=== PATIENT | female | born 1960 | race Caucasian/White ===

== ENCOUNTER 2020-01-21 15:08 | Outpatient (CLI) | payer OTHER, SELFPAY ==
--- NOTE | ~2020-01-21 | DEXA_ITS ---
Bone Density Report Name: Essence Herrera Age: 59 Sex: Female Ethnicity: White Date of : 1960 Indication: postmenopausal osteoporosis; monitoring treatment; height loss; prior fracture; Referring Provider: DARVIN OROZCO Study: Bone densitometry was performed. Exam Date: January 21, 2020 Accession number: [id number] Bone Density: Region BMD T-score Z-score Classification AP Spine (L1-L4) 0.734 -2.8 -1.4 Osteoporosis Femoral Neck (Left) 0.566 -2.6 -1.3 Osteoporosis Total Hip (Left) 0.724 -1.8 -0.8 Osteopenia Total Hip Bilateral Avg 0.733 -1.8 -0.8 Osteopenia Femoral Neck (Right) 0.498 -3.2 -1.9 Osteoporosis Total Hip (Right) 0.741 -1.7 -0.7 Osteopenia World Health Organization criteria for BMD impression classify patients as: Normal (T-score at or above -1.0), Osteopenia (T-score between -1.0 and -2.5), or Osteoporosis (T-score at or below -2.5). 10-year Fracture Risk: FRAX not reported because: Some T-score for Spine Total or Hip Total or Femoral Neck at or below -2.5 Treated for osteoporosis Previous Exams: Region Exam Age BMD T-score BMD Change BMD Change Date g/cm2 vs Baseline vs Previous AP Spine(L1-L4) 01/21/2020 59 0.734 -2.8 -0.007(-1.0%)# -0.007(-1.0%)# 11/20/2007 47 0.741 -2.8 Total Hip(Left) 01/21/2020 59 0.724 -1.8 0.072(11.0%)# 0.072(11.0%)# 11/20/2007 47 0.653 -2.4 Total Hip(Right) 01/21/2020 59 0.741 -1.7 0.107(16.8%)# 0.107(16.8%)# 11/20/2007 47 0.634 -2.5 *Denotes significance at 95% confidence level, LSC for AP Spine = 0.022 g/cm2, LSC for Total Hip = 0.027 g/cm2 Clinical Information Provided by Patient: Has had a low trauma fracture Is being treated for osteoporosis Has used the following medications: HRT (i.e. estrogen/hormone therapy) Patient maximum height was 61.5 Menopause Age: 29 Onset of menses at age 13 Number of children 1 Impression: The patient has established osteoporosis, based on the Right Femoral Neck T-score and the existence of a prior fracture. The patient has risk factors, including: previous fracture. No significant bone loss was observed. Discussion: PATIENT UNDER TREATMENT WITH NO SIGNIFICANT BMD LOSS SINCE LAST EXAM. In an untreated patient, BMD typically declines with age. A lack of decline or gain is usually a sign that treatment is efficacious and fracture risk is reduced. It is important to ask patients whether they are taking their medications and to encourage continued and appro
--- NOTE | ~2020-01-21 | MM_ITS ---
EXAMINATION: MM screening wei BI w lola HISTORY: Screening mammogram TECHNIQUE: Craniocaudal and mediolateral oblique 3-D tomosynthesis images were obtained and synthetic 2-D images were generated. CAD analysis was submitted and interpreted. COMPARISON: 09/09/2018, 11/20/2007 bilateral digital screening mammogram examinations BREAST PARENCHYMAL COMPOSITION: The breasts are heterogeneously dense, which may obscure small masses . FINDINGS: Stable appearing circumscribed intramammary lymph node in the outer mid right breast. There is no evidence of suspicious mass, calcification, or architectural distortion to suggest malignancy in either breast. There has been no suspicious interval change. IMPRESSION: 1. No mammographic evidence of malignancy. 2. Recommend routine screening mammography in one year. BI-RADS Category 2: Benign finding(s). Reviewed, dictated and finalized at location A.
== END 2020-01-21 15:09 | disposition home or self-care (01) ==
LOC: ANHIMG 15:10
PROVIDERS: PCP Family Medicine; Visit Provider Emergency Medicine
DX: Z12.31 Encounter for screening mammogram for malignant neoplasm of breast (principal); Z78.0 Asymptomatic menopausal state
CPT/HCPCS: 77063; 77067; 77080

== ENCOUNTER 2021-06-28 14:18 | Outpatient (CLI) | payer OTHER, SELFPAY ==
--- NOTE | ~2021-06-28 | US_ITS ---
EXAMINATION: US thyroid DATE: 06/28/2021 14:50 INDICATION: Hypothyroidism. TECHNIQUE: Multiple ultrasound images of the thyroid were obtained. COMPARISON: None. FINDINGS: The right thyroid lobe measures 3.4 x 0.9 x 1.0 cm. The left thyroid lobe measures 3.0 x 1.0 x 1.2 c m. There is normal echotexture and echogenicity throughout the thyroid gland. No discrete nodules id entified. Normal vascular flow is present. IMPRESSION: 1. Normal thyroid. Reviewed, dictated and finalized at location A. IDE CUTTER HAND IMPRESSION: 1. Normal thyroid.
== END 2021-06-28 14:19 | disposition home or self-care (01) ==
PROVIDERS: PCP Emergency Medicine; Visit Provider Emergency Medicine
DX: E03.9 Hypothyroidism, unspecified (principal)
CPT/HCPCS: 76536

== ENCOUNTER 2021-10-21 10:47 | Outpatient (CLI) | payer OTHER, SELFPAY ==
--- NOTE | ~2021-10-21 | MM_ITS ---
EXAMINATION: MM screening wei BI w lola HISTORY: Screening TECHNIQUE: Craniocaudal and mediolateral oblique 3-D tomosynthesis images were obtained and synthetic 2-D images were generated. CAD analysis was submitted and interpreted. COMPARISON: Comparison to multiple prior studies sequentially, with oldest reviewed study dated 09/09. BREAST PARENCHYMAL COMPOSITION: There are scattered areas of fibroglandular density. FINDINGS: There is no evidence of suspicious mass, calcification, or architectural distortion to sugg est malignancy in either breast. There has been no suspicious interval change. IMPRESSION: 1. No mammographic evidence of malignancy. 2. Recommend routine screening mammography in one year. BI-RADS Category 1: Negative Reviewed, dictated and finalized at location A. OR PAYROLL MANAGER
== END 2021-10-21 10:48 | disposition home or self-care (01) ==
PROVIDERS: PCP Emergency Medicine; Visit Provider Emergency Medicine
DX: Z12.31 Encounter for screening mammogram for malignant neoplasm of breast (principal)
CPT/HCPCS: 77063; 77067

== ENCOUNTER 2021-10-23 15:39 | Outpatient (CLI) | payer OTHER, SELFPAY ==
--- NOTE | ~2021-10-23 | XR_ITS ---
EXAMINATION: XR knee LT 2V DATE: 10/23/2021 15:56 INDICATION: Left knee pain post fall TECHNIQUE: AP and lateral views of the left knee were obtained COMPARISON: None. FINDINGS: Alignment is normal. No fracture. Joint spaces are normal. No left knee joint effusion. Soft tissues are unremarkable. IMPRESSION: 1. Negative left knee radiographs. Reviewed, dictated and finalized at location A. LINE COUNSELOR
== END 2021-10-23 15:40 | disposition home or self-care (01) ==
LOC: ANHIMG 15:43
PROVIDERS: PCP Emergency Medicine; Visit Provider Emergency Medicine
DX: M25.562 Pain in left knee (principal)
CPT/HCPCS: 73560

== ENCOUNTER 2021-10-30 08:14 | Outpatient (CLI) | payer OTHER, SELFPAY ==
--- NOTE | ~2021-10-30 | MR_ITS ---
EXAMINATION: MR shoulder LT wo con DATE: 10/30/2021 09:14 INDICATION: Left biceps pain TECHNIQUE: Magnetic resonance imaging (MRI) of the left shoulder was performed without intravenous co ntrast. Sequences included axial PD-weighted FS FSE, coronal oblique PD-weighted FS FSE, coronal obli que T2-weighted FS FSE, sagittal PD-weighted FS FSE, and sagittal T1-weighted SE. COMPARISON: None. FINDINGS: Coracoacromial arch: The acromion undersurface is curved in morphology (type II). The coracoacromial ligament is normal. M inimal acromioclavicular osteoarthritis. Rotator cuff: The supraspinatus, infraspinatus and teres minor tendons are normal. The subscapularis tendon is norm al. Normal rotator cuff muscle bulk and signal. Biceps tendon, glenoid labrum and glenohumeral cartilage: Long head of the biceps tendon is normal. Glenoid labrum is normal. Partial-thickness glenoid cartila ge loss with smooth chondral surface most prominent along the posterior glenoid. Fluid: Physiologic amount fluid in the glenohumeral joint space. Disproportionate small amount of fluid in t he long head biceps tendon sheath consistent with mild bicipital tenosynovitis. No loose osteochondra l bodies. No abnormally increased fluid in the subacromial/subdeltoid bursa to suggest bursitis. Bones/other: Thoracic mild increased marrow signal at the anterior aspect of the humeral head near the medial kasi in of the lesser tuberosity. Otherwise normal marrow signal. No fracture or pathologic marrow replaci ng process. Focus of mild edema in the superficial subcutaneous fat at the posterior superior aspect of the shoulder likely inflammatory in etiology. IMPRESSION: 1. Mild left glenohumeral and minimal acromioclavicular osteoarthritis. 2. Mild bicipital tenosynovitis with normal biceps tendon with no tendinopathy or tear. Reviewed, dictated and finalized at location A.
== END 2021-10-30 08:15 | disposition home or self-care (01) ==
PROVIDERS: PCP Emergency Medicine; Visit Provider Emergency Medicine
DX: M19.012 Primary osteoarthritis, left shoulder (principal); M75.22 Bicipital tendinitis, left shoulder
CPT/HCPCS: 73221

== ENCOUNTER 2021-11-02 14:26 | Outpatient (CLI) | payer OTHER, SELFPAY ==
--- NOTE | ~2021-11-02 | MR_ITS ---
EXAMINATION: MR humerus LT wo con DATE: 11/02/2021 15:23 INDICATION: Left shoulder pain. Left biceps pain. TECHNIQUE: Magnetic resonance imaging (MRI) of the left humerus was performed without intravenous con trast. Sequences included axial, coronal, and sagittal STIR FSE and T1-weighted FSE. COMPARISON: Left shoulder MRI 10/30/2021 FINDINGS: Bone alignment is normal. No fracture. There is mild glenohumeral joint osteoarthritis. The re is a small glenohumeral joint effusion. No elbow joint effusion. The musculature is normal. The pr oximal biceps tendon is normal. There is mild distal biceps tendinopathy. IMPRESSION: 1. Mild distal biceps tendinopathy. 2. Mild glenohumeral joint osteoarthritis. 3. Small glenohumeral joint effusion. Reviewed, dictated and finalized at location A.
== END 2021-11-02 14:27 | disposition home or self-care (01) ==
LOC: ANHIMG 14:27
PROVIDERS: PCP Emergency Medicine; Visit Provider Emergency Medicine
DX: M25.512 Pain in left shoulder (principal); M75.22 Bicipital tendinitis, left shoulder; M19.012 Primary osteoarthritis, left shoulder; M25.412 Effusion, left shoulder
CPT/HCPCS: 73218

== ENCOUNTER 2021-12-27 09:14 | Outpatient (CLI) | payer OTHER, SELFPAY ==
--- NOTE | ~2021-12-27 | DEXA_ITS ---
Bone Density Report Name: TOM MATHEW Age: 61 Sex: Female Ethnicity: White Date of : 1960 Indication: postmenopausal osteoporosis; monitoring treatment; prior fracture; hysterectomy; Referring Provider: FOUZIA*DARVIN Vidales Study: Bone densitometry was performed. Exam Date: December 27, 2021 Accession number: [id number] Bone Density: Region BMD T-score Z-score Classification AP Spine(L1-L4) 0.766 -2.6 -1.0 Osteoporosis Femoral Neck (Left) 0.577 -2.5 -1.1 Osteoporosis Total Hip (Left) 0.716 -1.9 -0.8 Osteopenia Femoral Neck (Right) 0.586 -2.4 -1.0 Osteopenia Total Hip (Right) 0.753 -1.6 -0.5 Osteopenia Total Hip Mean 0.734 -1.8 -0.7 Osteopenia World Health Organization criteria for BMD impression classify patients as: Normal (T-score at or above -1.0), Osteopenia (T-score between -1.0 and -2.5), or Osteoporosis (T-score at or below -2.5). 10-year Fracture Risk: FRAX not reported because: Some T-score for Spine Total or Hip Total or Femoral Neck at or below -2.5 Treated for osteoporosis Previous Exams: Region Exam Age BMD T-score BMD Change BMD Change Date g/cm2 vs Baseline vs Previous AP Spine (L1-L4) 12/27/2021 61 0.766 -2.6 0.032 (4.4%)* 0.032 (4.4%)* 01/21/2020 59 0.734 -2.8 Total Hip(Left) 12/27/2021 61 0.716 -1.9 -0.008 (-1.2%) -0.008 (-1.2%) 01/21/2020 59 0.724 -1.8 Total Hip(Right) 12/27/2021 61 0.753 -1.6 0.012 (1.6%) 0.012 (1.6%) 01/21/2020 59 0.741 -1.7 *Denotes significance at 95% confidence level, LSC for AP Spine = 0.022 g/cm2, LSC for Total Hip = 0.027 g/cm2 Clinical Information Provided by Patient: Has had a low trauma fracture Is being treated for osteoporosis Has used the following medications: Fosamax (i.e. alendronate) Has the following medical conditions: Hysterectomy Patient maximum height was 61.5 Menopause Age: 29 Onset of menses at age 11 Number of children 1 Impression: The patient has established osteoporosis, based on the Total Spine T-score and the existence of a prior fracture. The patient has risk factors, including: previous fracture. No significant bone loss was observed. Discussion: PATIENT UNDER TREATMENT WITH NO SIGNIFICANT BMD LOSS SINCE LAST EXAM. In an untreated patient, BMD typically declines with age. A lack of decline or gain is usually a sign that treatment is efficacious and fracture risk is reduced. It is important to ask patients whether they are taking their m
== END 2021-12-27 09:15 | disposition home or self-care (01) ==
LOC: ANHIMG 09:15
PROVIDERS: PCP Emergency Medicine; Visit Provider Emergency Medicine
DX: M81.0 Age-related osteoporosis without current pathological fracture (principal); M85.851 Other specified disorders of bone density and structure, right thigh; M85.852 Other specified disorders of bone density and structure, left thigh
CPT/HCPCS: 77080

== ENCOUNTER 2022-09-16 12:41 | Emergency (ER) | payer OTHER, SELFPAY ==
--- NOTE | ~2022-09-16 | XR_ITS ---
XR knee LT min 4V 09/16/2022 13:10 INDICATION: Left knee pain PROCEDURE: 5 views left knee COMPARISON: 10/23/2021 FINDINGS: Fracture, dislocation or subluxation is not identified. No significant joint effusion. The soft tissues appear within normal limits. No foreign bodies are identified. IMPRESSION: 1: NO ACUTE BONE OR JOINT ABNORMALITY IDENTIFIED. Reviewed, dictated and finalized at location A. STIGATION LIEUTENANT
--- NOTE | 2022-09-16 12:46 | ED.LOWEXIN ---
HPI - Extremity Injury (Lower) General Chief Complaint: Extremity Injury, Lower Stated Complaint: left knee cap injury Time Seen by Provider: 09/16/22 13:12 Source: patient and RN notes reviewed Mode of arrival: ambulatory Limitations: no limitations History of Present Illness HPI Narrative: 61-year-old female presents with concern for left knee pain. Reports Saturday night she tripped over a baby gate landed on her knee. She reports pain in the knee cap, trouble bending the knee fully, the knee feels unstable. She reports she has had trouble with that knee because of arthritis, she sees an orthopedic provider for that. She reports bruising and swelling to the knee MD complaint: knee injury Related Data Home Medications Medication Instructions Recorded Confirmed duloxetine 30 mg capsule,delayed mg PO 09/16/22 release levothyroxine 25 mcg tablet mcg 09/16/22 omeprazole 09/16/22 Allergies Allergy/AdvReac Type Severity Reaction Status Date / Time codeine Allergy Unknown Abdominal Verified 07/08/18 11:00 pain wool Allergy Unknown Verified 08/20/18 15:54 Review of Systems Review of Systems: CONSTITUTIONAL: Denies malaise, chills, sweats, or fever. SKIN: Denies rash or itching, open skin, laceration, abrasion, redness, warmth MUSCULOSKELETAL: Reports left knee pain, swelling, bruising NEUROLOGIC: Denies numbness, weakness All systems reviewed & are unremarkable except as noted in HPI and below PMFSH Family History Family History (Updated 04/30/17 @ 16:41 by DOCTOR UNKNOWN) Father Diabetes mellitus Mother Hypertension Other Cerebrovascular accident Family history of arthritis Family history of seizure disorder Social History Social History Smoking status: Never smoker Alcohol intake: never Comments At time of signature, agree with nursing past medical, surgical, social and family history. There is no relevant family history pertinent to the presenting complaint Exam Narrative: GENERAL: Well-appearing, well-nourished, and in no acute distress. HEAD: Normocephalic, atraumatic. EYES: PERRLA, conjunctivae clear NECK: Supple. CHEST: Speaks in full sentences. No respiratory distress. HEART: Regular rate and rhythm. Normal and equal peripheral pulses. EXTREMITIES: Left knee has grossly normal sensation, limited range of motion. Mild anterior edema and ecchymosis. Anterior tenderness. No open wounds, no skin tenting, no devitalized tissue or atrophy, no trophic changes, no obvious deformity, alignment normal, nearby joints and structures intact. Skin warm, dry, pink. Capillary refill less than 3 seconds. SKIN: Warm, dry, no rash. NEURO: Alert and oriented x3. PSYCH: Normal mood and affect Course Course Emergency Course: Patient is aware of diagnosis, understands and agrees to treatment plan. Anticipatory guidance given. Patient agrees to follow-up as directed and is aware of reasons to seek care at the emergency department. Portions of this record may have been created with voice recognition software Level of Care: Express Care Visit Vital Signs Vital signs: Reviewed. MDM - Extremity Injury (Lower) MDM Narrative Medical decision making narrative: Patients injury and pain is consistent with musculoskeletal etiology. No signs of neurological or vascular compromise on exam. Compartments and tissues are soft without signs of compartment syndrome. Pain is felt appropriate for further evaluation on an outpatient basis. Imaging Data My impression: Images reviewed, interpreted by radiologist, agree, see report. Radiologist's impression: XR knee LT min 4V 09/16/2022 13:10 INDICATION: Left knee pain PROCEDURE: 5 views left knee COMPARISON: 10/23/2021 FINDINGS: Fracture, dislocation or subluxation is not identified. No significant joint effusion. The soft tissues appear within normal limits.? No foreign bodies are identified. IMPRESSION: 1: NO ACUTE BONE OR JOINT ABNO
[2022-09-16 12:50] VITALS: BP 116/63; PULSE 79; RESP 16; TEMP 36.6; O2SAT 100
== END 2022-09-16 13:24 | disposition home or self-care (01) ==
PROVIDERS: Emergency Provider Nurse Practitioner; PCP Emergency Medicine
DX: S80.02XA Contusion of left knee, initial encounter (principal); W18.09XA Striking against other object with subsequent fall, initial encounter; K21.9 Gastro-esophageal reflux disease without esophagitis; M79.7 Fibromyalgia
CPT/HCPCS: 73564; 99213; G0463

== ENCOUNTER 2023-07-08 08:26 | Outpatient (CLI) | payer OTHER, SELFPAY ==
--- NOTE | ~2023-07-08 | MM_ITS ---
EXAMINATION: MM screening wei BI w lola HISTORY: Screening mammogram TECHNIQUE: Craniocaudal and mediolateral oblique 3-D tomosynthesis images were obtained and synthetic 2-D images were generated. CAD analysis was submitted and interpreted. COMPARISON: No prior mammogram is available for comparison at this institution. BREAST PARENCHYMAL COMPOSITION: The breasts are heterogeneously dense, which may obscure small masses . FINDINGS: There is no evidence of suspicious mass, calcification, or architectural distortion to sugg est malignancy in either breast. There has been no suspicious interval change. IMPRESSION: 1. No mammographic evidence of malignancy. 2. Recommend routine screening mammography in one year. BI-RADS Category 1: Negative Reviewed, dictated and finalized at location A. ER TAPPER
== END 2023-07-08 08:27 | disposition home or self-care (01) ==
LOC: ANHIMG 08:28
PROVIDERS: PCP Emergency Medicine; Visit Provider Emergency Medicine
DX: Z12.31 Encounter for screening mammogram for malignant neoplasm of breast (principal)
CPT/HCPCS: 77063; 77067

== ENCOUNTER 2024-04-07 14:53 | Emergency (ER) | payer OTHER, SELFPAY ==
--- NOTE | ~2024-04-07 | CT_ITS ---
EXAMINATION: 1. CT facial & cervical spine wo DATE: 04/07/2024 15:34 INDICATION: Head/facial injury TECHNIQUE: 1. Computed tomography (CT) of the maxillofacial region and of the cervical spine were performed with out intravenous contrast. Sagittal and coronal reconstructions of both regions were obtained. Automat ed exposure control and iterative reconstruction technique were employed. The dose-length product was mGy-cm. COMPARISON: None. FINDINGS: Maxillofacial CT: No maxillofacial fractures. Specifically the nasal bones, zygomatic arches, mandible and parry of the orbits or paranasal sinuses are all intact. Nasal septum remains midline without fracture. Changes o f bilateral intraocular lens replacement. Orbits are otherwise normal. The mastoid air cells, middle ear cavities and paranasal sinuses are clear. Cervical spine CT: Alignment is normal. Moderate atlantoaxial osteoarthritis. Mild to moderate disc height loss with mod erate to severe bilateral uncovertebral osteoarthritis at C2-C3 through C5-C6. Disc bulges or disc os teophyte complexes resulting in mild central canal stenosis at each of these levels. There is also mu ltilevel moderate and severe bilateral cervical facet osteoarthritis. This along with the uncovertebr al osteoarthritis contributes to moderate neural foraminal stenosis on the left at C3-C4, on the righ t at C4-C5 and bilaterally at C5-C6. Mild neural from stenosis at several additional cervical neural foramina. Atherosclerotic calcifications at the bilateral carotid bulbs. Cervical soft tissues are ot herwise unremarkable. Mild biapical pleural-parenchymal scarring with mild mosaic attenuation in the visualized upper lungs likely related to expiratory phase of imaging. IMPRESSION: 1. No maxillofacial fractures. 2. Mild to moderate cervical spondylosis with no acute osseous abnormality. Reviewed, dictated and finalized at location A.
--- NOTE | ~2024-04-07 | CT_ITS ---
EXAMINATION: CT brain wo con DATE: 04/07/2024 15:34 INDICATION: Head injury TECHNIQUE: Computed tomography (CT) of the head was performed without intravenous contrast. Sagittal and coronal reconstructions were performed. The mA was adjusted according to patient size. Iterative reconstruction technique was employed. The dose-length product was 529.67 mGy-cm. COMPARISON: None FINDINGS: No fracture. No acute intracranial hemorrhage, acute infarction or abnormal extra axial fluid collect ion. There is mild scattered white matter hypoattenuation consistent with chronic small vessel ischem ic disease. Ventricles are normal and symmetric. No mass/mass effect. Changes of bilateral intraocula r lens replacement. The orbits, paranasal sinuses and mastoid air cells are normal. IMPRESSION: 1. No fracture or acute intracranial process. Reviewed, dictated and finalized at location A.
[2024-04-07 15:04] VITALS: BP 146/86; PULSE 110; RESP 16; TEMP 36.4; O2SAT 97
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
[2024-04-07 16:34] VITALS: BP 136/78; PULSE 80; RESP 16; TEMP 36.4; O2SAT 100
== END 2024-04-07 16:36 | disposition home or self-care (01) ==
PROVIDERS: Emergency Provider Nurse Practitioner Family; PCP Emergency Medicine
DX: S06.0X0A Concussion without loss of consciousness, initial encounter (principal); S00.83XA Contusion of other part of head, initial encounter; M47.812 Spondylosis without myelopathy or radiculopathy, cervical region; Y04.2XXA Assault by strike against or bumped into by another person, initial encounter
CPT/HCPCS: 70450; 70486; 72125; 99284

== ENCOUNTER 2024-08-13 15:33 | Outpatient (CLI) | payer OTHER, SELFPAY ==
--- NOTE | ~2024-08-13 | MM_ITS ---
EXAMINATION: MM screening wei BI w lola HISTORY: Screening TECHNIQUE: Craniocaudal and mediolateral oblique 3-D tomosynthesis images were obtained and synthetic 2-D images were generated. CAD analysis was submitted and interpreted. COMPARISON: 07/08/2023 and dating back to 01/21/2020 BREAST PARENCHYMAL COMPOSITION: There are scattered areas of fibroglandular density. FINDINGS: Bulky calcifications detected bilaterally, stable and benign in appearance. Stable parenchymal pattern without suspicious microcalcifications, architectural distortion, discrete masses or significant asymmetry. IMPRESSION: 1. No mammographic evidence of malignancy. 2. Recommend routine screening mammography in one year. BI-RADS Category 2: Benign finding(s). Reviewed, dictated and finalized at location A. SMITH HELPER
== END 2024-08-13 15:34 | disposition home or self-care (01) ==
LOC: ANHIMG 15:33
PROVIDERS: PCP Emergency Medicine; Visit Provider Emergency Medicine
DX: Z12.31 Encounter for screening mammogram for malignant neoplasm of breast (principal)
CPT/HCPCS: 77063; 77067

== ENCOUNTER 2024-08-27 00:21 | Day surgery (SDC) | payer OTHER, SELFPAY ==
[2024-08-05 15:03] VITALS: BMI 26.0
[2024-08-27 12:46] VITALS: BP 127/69; PULSE 86; RESP 17; TEMP 36.2; O2SAT 99; BMI 26.3
--- NOTE | 2024-08-27 12:56 | WPDANESEPPF ---
Anes - Initial Pre Proc Eval Procedure: Operation Date: 08/27/24 14:00 Proposed Procedures p Esophagogastroduodenoscopy - Frandy Lauren MD Date/Time: 08/27/24 12:56 Surgeon: Frandy Lauren MD Pre Op Diagnosis: GERD Patient Data Age: 63 Gender: F Height: 1.55 m Weight: 63.2 kg Last Vital Signs Temp 36.2 C L 08/27/24 12:46 Pulse 86 08/27/24 12:46 Resp 17 08/27/24 12:46 BP 127/69 08/27/24 12:46 Pulse Ox 99 08/27/24 12:46 O2 Del Method Room Air 08/27/24 12:46 Allergies Allergy/AdvReac Type Severity Reaction Status Date / Time wool Allergy Intermediate Hives Verified 08/27/24 12:45 codeine Allergy Mild Abdominal Verified 08/27/24 12:45 pain Home Medications ?Medication ?Instructions ?Recorded ?Confirmed ?Type duloxetine 30 mg capsule,delayed 30 mg PO DAILY 09/16/22 08/05/24 History release levothyroxine 25 mcg tablet 25 mcg PO DAILY 09/16/22 08/05/24 History dexlansoprazole 60 mg 60 mg PO DAILY #90 caps 06/03/24 08/05/24 Rx capsule,biphase delayed release (Dexilant) pantoprazole 40 mg tablet,delayed 40 mg PO BID #60 tabs 06/03/24 08/05/24 Rx release lansoprazole 30 mg capsule,delayed 30 mg PO DAILY #90 caps 06/09/24 08/05/24 Rx release Patient hx anesthesia problems: none Family hx anesthesia problems: none Results Review: All pre-operative results and documents have been reviewed as part of the pre-operative evaluation. [facility] Past Medical History Medical History History of endometriosis Hypothyroid Anxiety GERD (gastroesophageal reflux disease) Surgical History Surgical History H/O sinus surgery Status post complete hysterectomy Hx of right inguinal hernia repair Family History Family History Father Diabetes mellitus Mother Hypertension Other Cerebrovascular accident Family history of arthritis Family history of seizure disorder Social History Social History Smoking status: Never smoker Alcohol intake: never Substance use type: does not use Living arrangements: alone Spiritual care concerns: No Anes - Eval Final PreProcedure Day of Procedure 08/27/24 12:56 Patient weight: overweight Heart: regular rate and rhythm Lungs: clear to auscultation Airway: Mallampati scale class II Neurological: alert and oriented Last oral intake: >/= 8 hours ASA classification: II Emergent: no Anesthetic plan: proceed Anesthesia type and monitoring: general GIVS and standard monitoring Results Review: All pre-operative results and documents have been reviewed as part of the pre-operative evaluation. Informed Consent: The patient's anesthetic plan and its attendant risks and benefits were discussed with the patient/family/POA. Questions were solicited and answers provided to the satisfaction of the patient/family/POA.
[2024-08-27] MEDS: LACTATED RINGERS 1,000 ML 150 ML IV CONT (12:57)
--- NOTE | 2024-08-27 13:21 | PM.HPGS ---
History of Present Illness History of Present Illness Consent: Risks, benefits, and alternatives have been discussed and questions answered. Patient agrees to proceed with procedure. Chief complaint: GERD Narrative: Essence Herrera is a 63 year old female with gerd on ppi Review of Systems Review of Systems: All systems reviewed & are unremarkable except as noted in HPI and below PMFSH Past Medical History Medical History History of endometriosis Hypothyroid Anxiety GERD (gastroesophageal reflux disease) Surgical History Surgical History H/O sinus surgery Status post complete hysterectomy Hx of right inguinal hernia repair Family History Family History Father Diabetes mellitus Mother Hypertension Other Cerebrovascular accident Family history of arthritis Family history of seizure disorder Social History Social History Smoking status: Never smoker Alcohol intake: never Substance use type: does not use Living arrangements: alone Spiritual care concerns: No Meds Home Medications and Allergies Home Medications ?Medication ?Instructions ?Recorded ?Confirmed ?Type duloxetine 30 mg capsule,delayed 30 mg PO DAILY 09/16/22 08/05/24 History release levothyroxine 25 mcg tablet 25 mcg PO DAILY 09/16/22 08/05/24 History dexlansoprazole 60 mg 60 mg PO DAILY #90 caps 06/03/24 08/05/24 Rx capsule,biphase delayed release (Dexilant) pantoprazole 40 mg tablet,delayed 40 mg PO BID #60 tabs 06/03/24 08/05/24 Rx release lansoprazole 30 mg capsule,delayed 30 mg PO DAILY #90 caps 06/09/24 08/05/24 Rx release Allergies Allergy/AdvReac Type Severity Reaction Status Date / Time wool Allergy Intermediate Hives Verified 08/27/24 12:45 codeine Allergy Mild Abdominal Verified 08/27/24 12:45 pain Vital Signs Vital Signs - 24 hr 08/27/24 12:46 Temperature 97.1 F L Pulse Rate 86 Respiratory Rate 17 Blood Pressure 127/69 Pulse Oximetry 99 Oxygen Delivery Room Air Exam Const: General: comfortable and no acute distress HENMT: Face/Nose/Sinus: Normal nares present Eyes: General: appearance normal, both eyes and all related structures Neck: Neck: no JVD Resp: Auscultation: clear to auscultation bilaterally Cardio: Rate: regular rate Rhythm: regular rhythm GI: Inspection: non-distended GI Palp: Yes Soft to palpation Skin: General skin exam: normal color Neuro: Speech: normal speech Extrem: General: normal to inspection Psych: Mental Status: mental status grossly normal Assessment and Plan Assessment and plan (1) GERD (gastroesophageal reflux disease): Code(s): K21.9 - Gastro-esophageal reflux disease without esophagitis Status: Acute Assessment and Plan: egd with bx on ppi
[2024-08-27 13:39] VITALS: BP 129/76; PULSE 80; RESP 17; O2SAT 100
[2024-08-27 13:49] VITALS: BP 121/71; PULSE 74; RESP 19; O2SAT 100
[2024-08-27 13:59] VITALS: BP 115/71; PULSE 74; RESP 15; O2SAT 100
== END 2024-08-27 14:07 | disposition home or self-care (01) ==
PROVIDERS: PCP Emergency Medicine; Referring Provider Nurse Practitioner; Visit Provider Internal Medicine Gastroenterology
PROC: 0DJ08ZZ Inspection of Upper Intestinal Tract, Via Natural or Artificial Opening Endoscopic (ICD-10-PCS; CPT 43239; principal; 2024-08-27 14:00)
DX: K21.9 Gastro-esophageal reflux disease without esophagitis (principal); E03.9 Hypothyroidism, unspecified; F41.9 Anxiety disorder, unspecified; N80.9 Endometriosis, unspecified; Z98.890 Other specified postprocedural states; Z82.49 Family history of ischemic heart disease and other diseases of the circulatory system
CPT/HCPCS: 43239; 88305; J2003; J2704; J7120

== ENCOUNTER 2025-03-16 11:01 | Outpatient (CLI) | payer MEDICARE, OTHER, SELFPAY ==
--- OUTSIDE RECORDS SUMMARY | 2025-03-16 11:23 | XMS_ITS | Clinical Summary ---
Author Organization [facility] Address [address] [facility] [address] [place] [address] Phone Care Team Providers Care Network Admin Name Role Phone Hasmukh Blount Primary Care Provider [phone] Allergies Active Allergy Reactions Criticality Noted Date Comments Codeine Other (see Comments) 04/19/2017 Medications alendronate (FOSAMAX) 70 MG Tablet TAKE 1 TABLET BY MOUTH ONCE A WEEK IN THE MORNING AT LEAST 30 MINUTES BEFORE FIRST FOOD BEVERAGE OR MEDICATION OF DAY 0 Active levothyroxine (SYNTHROID) 25 MCG Tablet TAKE 1 TABLET BY MOUTH ONCE DAILY 0 Active DULoxetine (CYMBALTA) [address] Particles Take 60 mg by mouth. 0 Active omeprazole (PriLOSEC) 20 MG CAPSULE DELAYED RELEASE 20 mg. 3 Active Cholecalciferol 125 MCG (5000 UT) Tablet 1 po q d 3 Active Melatonin 10 MG Tablet Controlled Release Take by mouth. Activ e SF 5000 Plus 1.1 % Cream BRUSH TEETH 3 TIMES DAILY 0 Active ferrous sulfate 325 (65 Fe) MG Tablet Take 1 Tab by mouth daily. 30 Tab 3 0 Active Active Problems Problem Noted Date Diagnosed Date Anemia of unknown etiology 04/07/2020 Family History Medical History Relation Name Comments Diabetes Father Stroke Mother Relation Name Status Comments Father Mother Social History Tobacco Use Types Packs/Day Years Used Date Smoking Tobacco: Never Smokeless Tobacco: Never Alcohol Use Standard Drinks/Week Comments Yes 0 (1 standard drink = 0.6 oz pur e alcohol) 1-2 occasionally PHQ-2 Answer Date Recorded Total Score - Questions 1-9 0 10/2019 Comments Unknown Sex and Gender Information Value Date Recorded Sex Assigned at Not on file Legal Sex Female 8:13 AM CDT Gender Identity Not on file Sexual Orientation Not on file Last Filed Vital Signs Vital Sign Reading Time Taken Comments Blood Pressure 122/71 09/10/2023 11:25 AM [employer]CHER[employer] ASSISTANT Pulse 103 09/10/2023 11:25 AM [employer]CH[employer]S ASSISTANT Temperature 36.5 C (97.7 F) 09/10/2023 11:25 AM BUTCHER'S ASSISTANT Respiratory Rate 16 09/10/2023 11:25 AM BUTCHER'S ASSISTANT Oxygen Saturation 98% 09/10/2023 11:25 AM BUTCHER'S ASSISTANT Inhaled Oxygen Concentration - - Weight 60.8 kg (134 lb) 07/21/2020 11:21 AM BUTCHER'S ASSISTANT Height 156.8 cm (5' 1.75) 07/21/2020 11:[address] Body Mass Index 24.71 07/21/2020 11:21 AM BUTCHER'S ASSISTANT Plan of Treatment Health Maintenance Due Date Last Done Comments Hepatitis C Virus (HCV) Screening 1960 Mammogram 1960 TdaP Immunization 1960 Cologuard 11/15/2004 Colonoscopy 11/15/2004 Colorectal Cancer Screening 11/15/2004 Immunochemical Fecal Occult Blood 11/15/2004 Pneumococcal Immunization (50+ years) (1 of 1 - PCV) 11/15/2009 Zoster Immunization (1 of 2) 11/15/2009 DEXA Bone Density 12/28/2023 12/27/2021, , 09/11/2013, Additional history exists SARS-COV-2 Immunization ( season) 2024 12/06/2020, 11/15/2020 Influenza Immunization (#1) 04/19/202510/2018, 07/28/2011, 08/30/2007 Respiratory Syncytial Virus (RSV) Immunization (Adult) (1 - 1-dose 75+ series) 11/15/2034 Meningococcal Immunization (ACWY) Aged Out 03/13/1978 No longer eligible based on patient's age to complete this topic DTaP/Tdap/Td Immunization Discontinued 08/24/2003, 06/1979 Hepatitis B Immunization Aged Out No longer eligible based on patient's age to complete this topic Human Papillomavirus (HPV) Immunization Aged Out No longer eligible based on patient's age to complete this topic Rotavirus Immunization Aged Out No lo nger eligible based on patient's age to complete this topic Procedures Procedure Name Priority Date/Time Associated Diagnosis Comments BONE DENSITY GENERIC 12/27/2021 12:00 AM CDT from Last 3 Months or Most Recently Relevant to Health Maintenance Results * BONE DENSITY GENERIC SCAN (12/27/2021 12:00 AM CDT) 12/27/2021 us Provider Scan IMG DEXA ORDERABLES Final Result SCAN from Last 3 Months or Most Recently Relevant to Health Maintenance Insurance Care Teams Network Admin Relationship Specialty Start Date End Date Hasmukh Blount [address] [place] [address] PCP - General Family Medicine 03/03/20
--- OUTSIDE RECORDS SUMMARY | 2025-03-16 11:23 | XMS_ITS | Continuity of Care Document ---
Author Name [facility] Organization [facility] Care Team Providers Care Social Services Director Name Role Phone [facility] Unavailable Unavailable Medications Combined list of outpatient medications from Department of Defense and Veterans Affairs facilities.Medications provided include 1) outpatient medications from the last 15 months, and 2) patient-reported medications. Medication Details Route Status Patient Instructions Prescription Expires Prescription Number Last Dispense Date Ordering Provider Order Date Order Qty Source ALPRAZolam 0.5 mg tablet See Instruct ions, # 28 EA, 0 total refill(s ), Hard Stop Complet ed 05/15/2024 4 2023 28.0 Ambulat ory Pharmac y cefdinir 300 mg capsule 300 mg, Oral, every 12 hr, # 20 EA, 0 total refill(s ), Hard Stop Oral (given by mouth) Complet ed 10/16/2024 4 2024 20.0 Ambulat ory Pharmac y DULoxetine DR 30 mg capsule = 1 cap(s), Oral, Daily, # 30 EA, 3 total refill(s ), Hard Stop Oral (given by mouth) Discont inued 02/09/2025 5 2024 30.0 Ambulat ory Pharmac y DULoxetine DR 30 mg capsule 30 mg, Oral, Daily, # 30 EA, 3 total refill(s ), Hard Stop Oral (given by mouth) Complet ed 03/12/2024 3 2023 30.0 Ambulat ory Pharmac y DUL[address] 30 mg capsule 30 mg, Oral, Daily, # 30 EA, 3 total refill(s ), Hard Stop Oral (given by mouth) Discont inued 06/30/2024 4 2023 30.0 Ambulat ory Pharmac y DUL[address] 30 mg capsule See Instruct ions, # 30 EA, 3 total refill(s ), Hard Stop Discont inued 03/12/2024 4 2023 30.0 Ambulat ory Pharmac y DUL[address]etine DR 30 mg capsule = 1 cap(s), Oral, Daily, # 30 EA, 3 total refill(s ), Soft Stop Oral (given by mouth) Ordered 5 2024 30.0 Ambulat ory Pharmac y fluticasone 50 mcg/inh nasal spray [16g] 100 mcg, Nostril- Both, Daily, # 16 g, 0 total refill(s ), Hard Stop Nostri l-Both (into the nose) Complet ed 10/16/2024 4 2024 16.0 Ambulat ory Pharmac y lansoprazol e DR 30 mg capsule = 1 cap(s), Oral, Daily, # 90 EA, 3 total refill(s ), Hard Stop Oral (given by mouth) Ordered 06/09/2025 5 2024 90.0 Ambulat ory Pharmac y levothyroxi ne (Synthroid) 25 mcg tablet 25 mcg, Oral, Daily, # 90 EA, 3 total refill(s ), Hard Stop Oral (given by mouth) Complet ed 03/19/2024 4 2023 90.0 Ambulat ory Pharmac y levothyroxi ne (Synthroid) 25 mcg tablet 25 mcg, Oral, Daily, # 90 EA, 3 total refill(s ), Hard Stop Oral (given by mouth) Ordered 03/25/2025 5 2024 90.0 Ambulat ory Pharmac y pantoprazol e EC 40 mg tablet See Instruct ions, # 30 EA, 0 total refill(s ), Hard Stop Complet ed 06/07/2024 4 2023 30.0 Ambulat ory Pharmac y pantoprazol e EC 40 mg tablet See Instruct ions, # 60 EA, 0 total refill(s ), Hard Stop Complet ed 07/04/2024 4 2023 60.0 Ambulat ory Pharmac y predniSONE 20 mg tablet 60 mg, Oral, Daily, # 15 EA, 0 total refill(s ), Hard Stop Oral (given by mouth) Complet ed 10/16/2024 4 2024 15.0 Ambulat ory Pharmac y traZODone 50 mg tablet See Instruct ions, # 30 EA, 2 total refill(s ), Soft Stop Ordered 5 2024 30.0 Ambulat ory Pharmac y Allergies, Adverse Reactions, Alerts Combined list of allergies from Department of Defense and Veterans Affairs facilities. It does not include entries that were removed or entered in error. Substance Category Reaction Severity Reaction type Status Date Reported Comments Source codeine Drug allergy GI Reaction, Stomatitis Severe Active Ambulatory Pharmacy Immunizations Combined list of available immunizations from the Department of Defense and Veterans Affairs facilities. Immunization Series Date Given Administered By Site Reaction Lot Number CVX Code Drug Wheel Installer Status Comments Source influenza virus vaccine, unspecified 2010 [id number] CSL [employer]ring complet ed influenza virus vaccine, unspecifi ed 07/28/11 Given Ambulat ory Pharmac y influenza virus vaccine,split 2009 [id number] CSL [employer]ring complet ed influenza virus vaccine,s plit 07/29/10 Given Ambulat ory Pharmac y Novel influenza-H1N 1-09, injectable 2009 [id number] 127 Nov[employer]is Pharm[employer] ls complet ed Novel influenza -[id number], injectabl e 12/04/09 Given Ambulat ory Pharmac y influenza virus vaccine,split 2008 [id number] 15 CSL Behring complet ed influenza virus vaccine,s plit 07/30/09 Given Ambulat ory Pharmac y influenza virus vaccine,split 2008 [id number] GlaxoSmithKli ne complet ed influenza virus vaccine,s plit 09/11/08 Given Ambulat ory Pharmac y influenza virus vaccine, live 2007 [id number] [employer] comple t ed influenza virus vaccine, live 08/30/07 Given Ambulat ory Pharmac y hepatitis A adult vaccine 2003 [id number] Merck [employer] Company Inc complet ed hepatitis A adult vaccine 08/24/03 Given Ambulat ory Pharmac y tetanus-dipht h toxoids (Td) adult/adol 2003 [id number] sanofi pasteur complet ed tetanus-d iphth toxoids (Td) adult/ado l 08/24/03 Given Ambulat ory Pharmac y measles/mumps /rubella virus vaccine 2003 [id number] Merck [employer] Inc complet ed measles/m umps/rube lla virus vaccine 08/24/03 Given Ambulat ory Pharmac y hepatitis A adult vaccine 1998 [id number] 52 Unknown complet ed hepatitis A adult vaccine 10/09/98 Given Ambulat ory Pharmac y influenza virus vaccine,split 1982 UNK 15 sanofi pasteur complet ed influenza virus vaccine,s plit 07/03/83 Given Ambulat ory Pharmac y tetanus-dipht h toxoids (Td) adult/adol 1978 UNK 09 Unknown complet ed tetanus-d iphth toxoids (Td) adult/ado l 08/29/78 Given Ambulat ory Pharmac y poliovirus vaccine, live, oral 1978 UNK 02 Unknown complet ed polioviru s vaccine, live, oral 08/26/78 Given Ambulat ory Pharmac y typhoid vaccine, unspecified formulation 1977 UNK 91 Unknown complet ed typhoid vaccine, unspecifi ed formulati on 04/24/78 Given Ambulat ory Pharmac y vaccinia (smallpox) vaccine 1977 UNK 75 Unknown complet ed vaccinia (smallpox ) vaccine 03/28/78 Given Ambulat ory Pharmac y meningococcal polysaccharid e (MPSV4) 1977 UNK 32 Unknown complet ed meningoco ccal polysacch aride (MPSV4) 03/13/78 Given Ambulat ory Pharmac y Procedures Combined list of: 1) Procedures from Department of [facility] Affairs [facility], not all [facility] non-surgical procedures are included; 2) All procedures from the Department of Defense facilities. Procedure Procedure Type Code Date Perfomer Comments Sourc e No data available for this section Ambulatory P harmacy Social History Combined list of available smoking, tobacco, and other social history from Department of Defense and Veterans Affairs facilities. Social History Type Response Date Comment Sourc e This section is an empty social history section. [facility] Assessment and Plan Combined list of future care activities from Department of Defense and Veterans Affairs facilities (e.g., assessment and plan notes, appointments, orders, and referrals). Additional future care activities may be listed in the Plan of Care section. Result Assessment and Plan Date Source Assessment and Plan No data available for this section 03/16/2025 Ambulatory Pharmacy Functional Status Combined list of recent functional and cognitive assessments recorded at Department of Defense and Veterans Affairs (VA).VA Functional [place] Measurement (FIM) Scale: 1 = Total Assistance (Subject = 0% +), 2 = Maximal Assistance (Subject = 25% +), 3 = Moderate Assistance (Subject = 50% +), 4 = Minimal Assistance (Subject = 75% +), 5 = Supervision, 6 = Modified [place] (Device), 7 = Complete [place] (Timely, Safely). Assessment Date/Time Source Assessment Type Assessment Skill Assessment Score Assessment Details No data available for this section
--- OUTSIDE RECORDS SUMMARY | 2025-03-16 11:23 | XMS_ITS | Continuity of Care Document ---
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 Assessment Date assessment Encounter for bridget l adult medical examination without abnormal findings Mental Status Date Cognitive Assessment Orientation - [place] ed to time, place, person, situation.
--- OUTSIDE RECORDS SUMMARY | 2025-03-16 11:23 | XMS_ITS | Clinical Summary ---
Author Organization [facility] Address [address] [place] [id number] Care Team Providers Care Log Stacker Operator Name Role Phone Unavailable Primary Care Provider Unavailabl e Social History Tobacco Use Types Packs/Day Years Used Date Smoking Tobacco: Never Assessed Comments Unknown Sex and Gender Information Value Date Recorded Sex Assigned at Not on file Legal Sex Female 6:17 PM CDT Gender Identity Not on file Sexual Orientation Not on file Plan of Treatment Health Maintenance Due Date Last Done Comments Colorectal Cancer Screening Colonoscopy (10 Years) 1960 Hepatitis C 11/15/1977 DTaP, Tdap and Td Vaccines ( 1 - Tdap) 11/15/1978 Mammogram Screening 1999 Pneumococcal Vaccine: 50+ Ye ars (1 of 1 - PCV) 11/15/2009 Zoster Vaccines (1 of 2) 11/15/2009 COVID-19 Vaccine ( - 2023-2 5 season) 2024 Dexa Scan (General) 11/15/2024 RSV Immunization or 60+ Years (1 - 1-dose 75+ series) 11/15/2034 Meningococcal B Vaccine Aged Out No l onger eligible based on patient's age to complete this topic Meningococcal Vaccine Aged Out No anne marie tami eligible based on patient's age to complete this topic RSV Immunizations Under 20 Months Aged Out No longer eligible based on patient's age to complete this topic
--- OUTSIDE RECORDS SUMMARY | 2025-03-16 11:23 | XMS_ITS | Clinical Summary ---
Author Organization [facility] Address [address] [place] [address] Care Team Providers Care Edge Inker Heels Name Role Phone John Paul Fay MD Primary Care Provider [phone] Source Comments [facility],non-owned Affiliates and Associated Physician Practices is amultiple site organization consisting of ambulatory clinics and hospital sitesin [place], [place], [place] and [place]. This disclosure is being madepursuant to the Care Everywhere program and may not contain all information available regarding this patient. Last updated 18.[facility] Allergies Active Allergy Reactions Criticality Noted Date Comments Codeine 04/19/2017 Medications * Be aware that medications may not be up to date on this document. Alwaysverify current medications with the patient. DULoxetine HCl (CYMBALTA PO) Active MELATONIN ER PO Acti ve OMEPRAZOLE PO Active azithromycin (ZITHROMAX) 250 MG tabletIndication s:Abnormal sputum,Abnormal chest sounds Take 2 tablets now, then 1 tablet daily for 4 days. 6 Tab 7 Active albuterol HFA (PROAIR HFA) 108 (90 BASE) MCG/ACT inhalerIndicatio ns:Acute bronchitis, unspecified organism Inhale 2 Puffs by mouth every 4 hours as needed for Shortness of Breath, Wheezing or Cough 1 Inhaler 7 Active Social History Tobacco Use Types Packs/Day Years Used Date Smoking Tobacco: Never Smokeless Tobacco: Never Comments Unknown Sex and Gender Information Value Date Recorded Sex Assigned at Not on file Legal Sex Female 5:25 PM CDT Gender Identity Not on file Sexual Orientation Not on file Last Filed Vital Signs Vital Sign Reading Time Taken Comments Blood Pressure 104/62 04/19/2017 3:00 PM CDT Pulse 84 04/19/2017 3:00 PM CDT Temperature 37.8 C (100.1 F) 04/19/2017 3:00 PM CDT Respiratory Rate 16 04/19/2017 3:00 PM CDT Oxygen Saturation 97% 04/19/2017 3:00 PM CDT Inhaled Oxygen Concentration - - Weight 63.5 kg (140 lb) 04/19/2017 3:00 PM CDT Height 156.2 cm (5' 1.5) 04/19/2017 3:00 PM CDT Body Mass Index 26.02 04/19/2017 3:00 PM CDT Plan of Treatment Health Maintenance Due Date Last Done Comments BONE DENSITY TESTING 1960 COLOGUARD (AGES 45-75) - COL ON CA SCREENING 1959 COLON MONITORING 1959 COLONOSCOPY - COLON CA SCREENING 1959 CT COLONOGRAPHY - COLON CA SCREENING 1959 Colorectal Cancer Screening 1959 FIT - COLON CA SCREENING 1959 FLEX SIG - COLON CA SCREENING 1959 LIPID TESTING 1959 MAMMOGRAM 1959 HIV SCREENING 11/15/1974 HEPATITIS C SCREENING 11/11/1977 DTAP/TDAP/TD VACCINES (1 - Tdap) 11/15/1978 PAP SMEAR 11/15/1980 PNEUMOCOCCAL VACCINE 50+ (1 of 1 - PCV) 11/15/2009 ZOSTER VACCINE (1 of 2) 11/15/2009 SCREENING FOR DIABETES 04/19/2017 COVID-19 VACCINE ( - 2023-2 5 season) 2024 DEPRESSION SCREENING 08/19/2024 INFLUENZA VACCINE (#1) 2025 Respiratory Syncytial Virus (RSV) Vaccine Pt: or over 60 yrs (1 - 1-dose 75+ series) 11/15/2034 HEPATITIS B VACCINE Aged Out No longe r eligible based on patient's age to complete this topic HIB VACCINE Aged Out No longer eligi ble based on patient's age to complete this topic HPV VACCINE Aged Out No longer eligi ble based on patient's age to complete this topic MENINGOCOCCAL (Group B) VACC INE SHARED DECISION-MAKING Aged Out No longer eligibl e based on patient's age to complete this topic MENINGOCOCCAL GROUPS A/C/Y/W VACCINE Aged Out No longer eligible b ased on patient's age to complete this topic Insurance [employer] [facility] SELF PAY NO INSURANCE Member Subscriber Plan / Payer (Ef fective for All Dates) Name:Tom Herrera Member ID:Not on file Relation to Subscriber:Not on file Name:TOM HERRERA Subscriber ID:Not on file (Home) Address: [address] [place] [id number] Payer ID:Not on file Group ID:Not on file Type:Self Pay Address: [facility] Care Teams Edge Inker Heels Relationship Specialty Start Date End Date John Paul Fay MD [address] [place] [address] PCP - General Family Medicine 04/19/17
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
[2025-03-16 12:03] LABS: Alanine Aminotransferase 16 U/L (6-35); Albumin Level 4.1 g/dL (3.5-5.1); Alkaline Phosphatase 47 U/L (38-126); Anion Gap 7 mmol/L (4-12); Aspartate Amino Transferase 31 U/L (14-36); Bilirubin,Total 0.1 mg/dL (0.2-1.3); Blood Urea Nitrogen 14 mg/dL (7-17); Calcium 9.5 mg/dL (8.4-10.2); Carbon Dioxide 27 mmol/L (22-30); Chloride 106 mmol/L (98-107); Estimated Glomerular Filt Rate > 60; Glucose 93 mg/dL (65-110); Potassium 3.8 mmol/L (3.4-5.0); Sodium 140 mmol/L (137-145); Total Protein 7.2 g/dL (6.3-8.2)
[2025-03-17 07:09] LABS: TSH 0.999 uIU/mL (0.450-4.500)
== END 2025-03-16 11:02 | disposition home or self-care (01) ==
PROVIDERS: PCP Emergency Medicine; Visit Provider Internal Medicine Endocrinology, Diabetes & Metabolism
DX: E03.9 Hypothyroidism, unspecified (principal); E55.9 Vitamin D deficiency, unspecified; M81.0 Age-related osteoporosis without current pathological fracture
CPT/HCPCS: 36415; 80053; 82306; 84439; 84443; 84481; 86376

== ENCOUNTER 2025-03-23 09:49 | Outpatient (CLI) | payer MEDICARE, OTHER, SELFPAY ==
--- NOTE | ~2025-03-23 | DEXA_ITS ---
Bone Density Report Name: TOM MATHEW Age: 64 Sex: Female Ethnicity: White Date of : 1960 Indication: postmenopausal; screening for osteoporosis; hysterectomy; Referring Provider: MAINE, LIS Luciano Study: Bone densitometry was performed. Exam Date: March 23, 2025 Accession number: [id number] Bone Density: Region BMD T-score Z-score Classification AP Spine(L1-L4) 0.757 -2.6 -0.9 Osteoporosis Femoral Neck (Left) 0.606 -2.2 -0.7 Osteopenia Total Hip (Left) 0.705 -1.9 -0.7 Osteopenia Femoral Neck (Right) 0.554 -2.7 -1.1 Osteoporosis Total Hip (Right) 0.770 -1.4 -0.2 Osteopenia Total Hip Mean 0.737 -1.7 -0.5 Osteopenia World Health Organization criteria for BMD impression classify patients as: Normal (T-score at or above -1.0), Osteopenia (T-score between -1.0 and -2.5), or Osteoporosis (T-score at or below -2.5). 10-year Fracture Risk: FRAX not reported because: Some T-score for Spine Total or Hip Total or Femoral Neck at or below -2.5 Treated for osteoporosis Clinical Information Provided by Patient: Is being treated for osteoporosis Has used the following medications: Fosamax (i.e. alendronate), HRT (i.e. estrogen/hormone therapy), Prolia (i.e. denosumab), Vitamin D, Calcium Has the following medical conditions: Hysterectomy Patient maximum height was 61.5 Menopause Age: 29 No regular weight bearing exercise Onset of menses at age 13 Number of children 1 Impression: The patient has osteoporosis, based on the Right Femoral Neck T-score. Discussion: It is important to ask patients whether they are taking their medications and to encourage continued and appropriate compliance with their osteoporosis therapies to reduce fracture risk. It is also important to review their risk factors and encourage appropriate calcium and vitamin D intakes, exercise, fall prevention and other lifestyle measures. Follow-Up: Consider a repeat BMD and Vertebral Fracture Assessment (VFA) exam in 2 years or sooner if medically necessary, to reassess this patient's status. Reported by: RICH on 03/23/2025 10:36:00 AM. Reviewed, dictated and finalized at location A.
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
--- OUTSIDE RECORDS SUMMARY | 2025-03-23 10:14 | XMS_ITS | Continuity of Care Document ---
Author Name [facility] Organization [facility] Care Team Providers Care Washhouse Worker Name Role Phone [facility] Unavailable Unavailable Medications Combined list of outpatient medications from Department of Defense and Veterans Affairs facilities.Medications provided include 1) outpatient medications from the last 15 months, and 2) patient-reported medications. Medication Details Route Status Patient Instructions Prescription Expires Prescription Number Last Dispense Date Ordering Provider Order Date Order Qty Source ALPRAZolam 0.5 mg tablet See Instruct neli, # 28 EA, 0 total refill(s ), [...] y levothyroxi ne (Synthroid) 25 mcg tablet = 1 tab(s), Oral, Daily, # 90 EA, 3 total refill(s ), Soft Stop Oral (given by mouth) Ordered 5 2024 90.0 Ambulat ory Pharmac y [...] Stop Oral (given by mouth) Discont inued 03/16/2025 5 2024 90.0 Ambulat ory Pharmac y oxycodone-a cetaminophe n 5 mg-325 mg tablet See Instruct ions, Oral, # 15 EA, 0 total refill(s ), Soft Stop Oral (given by mouth) Ordered 5 2024 15.0 Ambulat ory Pharmac y pantoprazol e EC [...] 4 2024 15.0 Ambulat ory Pharmac y rivaroxaban 10 mg tablet See Instruct ions, Oral, 0, # 14 EA, 0 total refill(s ), Soft Stop Oral (given by mouth) Ordered 5 2024 14.0 Ambulat ory Pharmac y traZODone 50 mg tablet See Instruct ions, # 30 EA, 2 total refill(s ), Soft Stop Ordered 5 2024 30.0 Ambulat ory Pharmac y traZODone 50 mg tablet See Instruct ions, # 30 EA, 2 total refill(s ), Soft Stop Discont inued 03/19/2025 5 2024 30.0 Ambulat ory Pharmac y [...] Site Reaction Lot Number CVX Code Drug Area Secretary Status Comments Source influenza virus vaccine, unspecified 2010 [id number] 88 CSL Behring complet ed influenza virus vaccine, unspecifi ed 07/28/11 Given Ambulat ory Pharmac y influenza virus vaccine,split 2009 [id number] CSL Behring complet ed influenza virus vaccine,s plit 07/29/10 Given Ambulat ory Pharmac y Novel influenza-H1N 1-09, injectable 2009 [id number] 127 Novartis Pharmaceutica ls complet ed Novel influenza -[id number], injectabl e 12/04/09 Given Ambulat ory Pharmac y influenza virus vaccine,split 2008 [id number] 1A 15 CSL Behring complet ed influenza virus vaccine,s plit 07/30/09 Given Ambulat ory Pharmac y influenza virus vaccine,split 2008 [id number] 15 Glax[employer]ribogenicsKli ne complet ed influenza virus vaccine,s plit 09/11/08 Given Ambulat ory Pharmac y influenza virus vaccine, live 2007 [id number] 111 [employer] comple t ed influenza virus vaccine, live 08/30/07 Given Ambulat ory Pharmac y hepatitis A adult vaccine 2003 [id number] Merck & Company Inc complet ed hepatitis A adult vaccine 08/24/03 Given Ambulat ory Pharmac y tetanus-dipht h toxoids (Td) adult/adol 2003 [id number] sanofi pasteur complet ed tetanus-d iphth [...] [facility] facilities [facility], not all [place] non-surgical procedures are included; 2) All procedures [...] section is an empty social history section. [facility] Assessment and Plan Combined list of future care activities from Department of Defense and Veterans Affairs facilities (e.g., assessment and plan notes, appointments, orders, and referrals). Additional future care activities may be listed in the Plan of Care section. Result Assessment and Plan Date Source Assessment and Plan No data available for this section 03/23/2025 Ambulatory Pharmacy Functional Status Combined list of recent functional and cognitive assessments recorded at Department of Defense and [facility] Affairs ([place] Functional Jay Measurement (FIM) Scale: 1 = Total Assistance (Subject = 0% +), 2 = Maximal Assistance (Subject = 25% +), 3 = Moderate Assistance (Subject = 50% +), 4 = Minimal Assistance (Subject = 75% +), 5 = Supervision, 6 = Modified Jay (Device), 7 = Complete Jay (Timely, Safely). Assessment Date/Time Source Assessment Type Assessment Skill Assessment Score Assessment Details No data available for this section
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
--- OUTSIDE RECORDS SUMMARY | 2025-03-23 10:15 | XMS_ITS | Clinical Summary ---
Author Organization [facility] Address [address] [place] [address] Care Team Providers Care Resource Room Special Education Teacher Name Role Phone John Paul Fay MD Primary Care Provider [phone] Source Comments [facility],non-owned Affiliates and Associated Physician Practices is amultiple site organization consisting of ambulatory clinics and hospital sitesin [place], [place], [place] and [place]. This disclosure is being madepursuant to the Care Everywhere program and may not contain all information available regarding this patient. Last updated 18.[facility] Allergies Active Allergy Reactions Criticality Noted Date [...] Insurance [employer] [facility] SELF PAY NO INSURANCE Member Subscriber Plan / Payer (Ef fective for All Dates) Name:Tom Herrera Member ID:Not on file Relation to Subscriber:Not on file Name:TOM HERRERA Subscriber ID:Not on file (Home) Address: [address] [place] [id number] Payer ID:Not on file Group ID:Not on file Type:Self Pay Address: [facility] Care Teams Resource Room Special Education Teacher Relationship Specialty Start Date End Date John Paul Fay MD [address] [place] [address] PCP - General Family Medicine 04/19/17
--- OUTSIDE RECORDS SUMMARY | 2025-03-23 10:15 | XMS_ITS | Clinical Summary ---
Author Organization [facility] Address [address], [facility] [address] [address] Phone Care Team Providers Care Resin Coater Name Role Phone Hasmukh Blount Primary Care Provider [phone] Allergies Active Allergy Reactions Criticality Noted Date [...] Comments Blood Pressure 122/71 09/10/2023 11:25 AM BEEF KILLER Pulse 103 09/10/2023 11:25 AM BEEF KILLER Temperature 36.5 C (97.7 F) 09/10/2023 11:25 AM BEEF KILLER Respiratory Rate 16 09/10/2023 11:25 AM BEEF KILLER Oxygen Saturation 98% 09/10/2023 11:25 AM BEEF KILLER Inhaled Oxygen Concentration - - Weight 60.8 kg (134 lb) 07/21/2020 11:21 AM BEEF KILLER Height 156.8 cm (5' 1.75) 07/21/2020 11:[address] Body Mass Index 24.71 07/21/2020 11:21 AM BEEF KILLER Plan of Treatment Health Maintenance Due Date [...] Relevant to Health Maintenance Insurance Care Teams Resin Coater Relationship Specialty Start Date End Date Hasmukh Blount [address] [place] [address] PCP - General Family Medicine 03/03/20
--- OUTSIDE RECORDS SUMMARY | 2025-03-23 10:15 | XMS_ITS | Clinical Summary ---
Author Organization [facility] Address [address] [place] [address] Care Team Providers Care Aquaculture Program Director Name Role Phone Unavailable Primary Care Provider [...]
== END 2025-03-23 09:50 | disposition home or self-care (01) ==
LOC: ANHIMG 09:51
PROVIDERS: PCP Emergency Medicine; Visit Provider Internal Medicine Endocrinology, Diabetes & Metabolism
DX: M81.0 Age-related osteoporosis without current pathological fracture (principal); M85.89 Other specified disorders of bone density and structure, multiple sites; Z78.0 Asymptomatic menopausal state
CPT/HCPCS: 77080

== ENCOUNTER 2025-04-02 06:46 | Day surgery (SDC) | payer MEDICARE, OTHER, SELFPAY ==
--- NOTE | 2025-03-29 12:05 | PC.NURSE ---
Report to the Outpatient Waiting Room, entrance under the green pavilion located off [facility], at time _6:30 AM on date _04/02/25 . Planned Procedure Time: _8:30 AM .? Time changes happen often and if your time is changed the preop area will call you the afternoon before. - You and your visitor will be asked to self-screen and do not enter if you have any COVID symptoms. Please call surgeon if you need to reschedule. - A mask is optional within the hospital at this time. Patients may have clear liquids (water, carbonated beverages, clear teas, apple juice) until 3 hours prior to surgery ( 5:30 AM) with a maximum of 20 ounces. - No food from midnight until time of surgery and no smoking, or chewing tobacco (or any form of nicotine). No chewing gum, candy or mints. - Take only the following medications with a SIP of water on the morning of surgery: ___DULOXETINE,LEVOTHYROXINE DO NOT STOP ANY OF YOUR OTHER PRESCRIPTION MEDICATIONS PRIOR TO SURGERY EXCEPT THE FOLLOWING Hold all vitamins and supplements for 3 days per anesthesiologist.LAST DOSE 03/29/25 Medications to discontinue per physician NONE Please no make-up, nail latvian, hairspray, perfume, deodorant, or body powder the day of surgery.? No jewelry (including any body piercings) or valuables the day of surgery, leave them at home.? Please take a shower or bath the night before, or the morning of, surgery with an antibacterial soap.? Wear comfortable, loose fitting clothing.? Children are encouraged to wear pajamas. - Jewelry must be removed prior to entering the operating room.? Rings and piercings that are not removed may be cut off. - The hospital will not accept responsibility for valuables.? - Please leave all valuables, including medications, at home the day of surgery. If you are going home after surgery, a licensed horse and wagon driver must drive you home.? - NO public transportation without another adult if you receive anesthesia. - We recommend that an adult stay with you for 24 hours following discharge. - We also recommend that you do not drive, make important decision, drink alcoholic beverages, or take any drugs that were not prescribed by your health care provider for at least 24 hours after your discharge time. For Pediatric surgeries, we recommend two adults accompany the child home. Follow any additional instructions given to you from your surgeon. Telephone instructions given to __PATIENT and asked if any additional questions and then verbalized understanding. Patient advised to call surgeon office or pre surgery nurse liaison [phone] if any additional questions.
[2025-03-29 12:24] VITALS: BMI 24.9
[2025-04-02] VITALS (9 sets, daily range): BP systolic 102–147; BP diastolic 58–82; PULSE 60–84; RESP 12–18; TEMP 36.3–36.9; O2SAT 94–100; BMI 25.6
--- NOTE | ~2025-04-02 | XR_ITS ---
EXAMINATION: XR surgery orthopedic DATE: 04/02/2025 10:04 INDICATION: Brostrom procedure for lateral right ankle ligament stabilization TECHNIQUE: Single lateral image radiograph of the left mid and hindfoot was obtained. COMPARISON: None. FINDINGS: Surgical retractors project over the head and neck of the talus. A metallic probe and tip of a hemost at projects more posteriorly over the region of the posterior facet of the subtalar joint. The visual ized bones are unremarkable. IMPRESSION: 1. Lateral radiograph of the mid and hindfoot obtained during procedure at the right hindfoot. No oss eous adenopathy. See procedure note for further detail. Reviewed, dictated and finalized at location A. IMPRESSION: 1. Lateral radiograph of the mid and hindfoot obtained during procedure at the right hindfoot. No osseous adenopathy. See procedure note for further detail.
--- OUTSIDE RECORDS SUMMARY | 2025-04-02 06:48 | XMS_ITS | Clinical Summary ---
Author Organization [facility] Address [address] [place] [address] Care Team Providers Care Ship Steward Name Role Phone Unavailable Primary Care Provider [...]
--- OUTSIDE RECORDS SUMMARY | 2025-04-02 06:48 | XMS_ITS | Clinical Summary ---
Author Organization [facility] Address [address] [place] [id number] Care Team Providers Care Food Safety Auditor Name Role Phone Hasmukh Blount MD Primary [...] 07/30/2022 Assessment & Plan (08/24/2024 10:37 AM COAT IRONER HAND): Chronic, unknown status Continue current dose of levothyroxine Recheck labs Assessment & Plan (07/29/2023 1:22 PM COAT IRONER HAND): Pt currently on Levothyroxine 25 mcg oral daily Chronic stable Assessment & Plan (12/03/2022 3:07 PM CDT): Pt currently on Levothyroxine 25 mcg oral daily Chronic stable Assessment & Plan (07/30/2022 12:22 PM COAT IRONER HAND): Pt currently on Levothyroxine 25 mcg oral daily Recheck TFT today and further plans based on it Vitamin D deficiency 07/30/2022 Assessment & Plan (08/24/2024 10:38 AM COAT IRONER HAND): Check levels Assessment & Plan (07/29/2023 1:22 PM COAT IRONER HAND): Pt currently on maintenance dose Assessment & Plan (12/03/2022 3:07 PM CDT): Pt currently on maintenance dose Assessment & Plan (07/30/2022 12:21 PM COAT IRONER HAND): Pt currently on maintenance dose Will check levels and further plans based on it Primary osteoarthritis of left knee 03/27/2022 Chronic pain of left knee 03/27/2022 Anemia of unknown etiology 04/07/2020 Fibromyalgia 03/02/2018 Assessment & Plan (03/02/2018 3:16 PM CDT): Finally starting to feel better after working long hours for the [employer]. Looking forward to retiring soon and spending more time with her grandchildren. She is going to start to working out with her personal lines insurance advisor twice weekly tomorrow. Continue present regimen. Heel pain 03/06/2016 Overview (11/22/2016): Pain of left heel Intolerant of cold 06/03/2015 Overview (11/22/2016): Cold intolerance Osteoporosis 01/02/2014 Overview (11/23/2016): Osteoporosis Assessment & Plan (08/24/2024 10:38 AM COAT IRONER HAND): Chronic, unknown status Long standing h/o Osteoporosis [...] soon Assessment & Plan (07/29/2023 1:22 PM COAT IRONER HAND): Long standing h/o Osteoporosis Pt on oral alendronate atleast since 6-7 yrs , off since 08/2022 worsening osteoporosis S/p reclast infusion 08/29/2022 Plan: Continue current calcium and Vitamin D supplements Fall precautions Advise to include resistance/strenght balance training exercises - Due for labs after Aug 19 - due for reclast after 08/30/2023 at [facility] - due to for DEXA scan Jun-Jul [...] 2023 Assessment & Plan (07/30/2022 12:25 PM COAT IRONER HAND): Long standing h/o Osteoporosis Pt on oral [...] on file Legal Sex Female 11:04 AM COAT IRONER HAND Gender Identity Female 05/13/2020 3:10 PM CDT Sexual Orientation Straight 05/13/2020 3: 10 PM CDT Obstetrics History Last Filed Vital Signs Vital Sign Reading Time Taken Comments Blood Pressure 104/54 12/22/2024 9:53 AM CDT Pulse 87 12/22/2024 9:53 AM CDT Temperature 36.8 C (98.2 F) 12/22/2024 9:53 AM CDT Respiratory Rate 15 07/29/2023 11:07 AM COAT IRONER HAND Oxygen Saturation 97% 12/22/2024 9:53 AM CDT [...] OR MORE SITES Routine 09/11/2013 1:54 PM COAT IRONER HAND from Last 3 Months or Most Recently Relevant to Health Maintenance Results * Dexa Axial Skeleton Bone Density 1 or 2 Site (09/11/2013 1:54 PM COAT IRONER HAND) Anatomical Region Laterality Modality Body N/A Radiographic Tamara ging 09/11/2013 1:54 PM COAT IRONER HAND Narrative 09/11/2013 3:11 PM COAT IRONER HAND Bone mineral density [facility] Clinical History: 52-year-old postmenopausal female with requisition history of osteoporosis taking calcium and vitamin D. DXA BMD was done at [facility] on a Hologic Discovery CI. Precision testing at this site [...] MD Alisha - 12/22/2016 Bone mineral density [facility] Clinical History: 52-year-old postmenopausal female with requisition history of osteoporosis taking calcium and vitamin D. DXA BMD was done at [facility] on a [employer] Discovery CI. Precision testing at this site [...] 3 FAX: NextGen Order #: Historical Provider IMDora DXA PROCEDURES Final Result from Last 3 Months or Most Recently Relevant to Health Maintenance Insurance [facility] MEDICARE ADVANTAGE [facility] Address: [facility] [address] [place] [address] Vivino Care Teams Food Safety Auditor Relationship Specialty Start Date End Date Hasmukh Blount MD PCP - General Family Medicine 01/18/21
--- OUTSIDE RECORDS SUMMARY | 2025-04-02 06:48 | XMS_ITS | Clinical Summary ---
Author Organization [facility] Address [address], [facility] [address] [place] [address] Phone Care Team Providers Care Dental Instructor Name Role Phone Hasmukh Blount Primary Care Provider [phone] Allergies Active Allergy Reactions Criticality Noted Date [...] Comments Blood Pressure 122/71 09/10/2023 11:25 AM TRIMMER MACHINE OPERATOR Pulse 103 09/10/2023 11:25 AM TRIMMER MACHINE OPERATOR Temperature 36.5 C (97.7 F) 09/10/2023 11:25 AM TRIMMER MACHINE OPERATOR Respiratory Rate 16 09/10/2023 11:25 AM TRIMMER MACHINE OPERATOR Oxygen Saturation 98% 09/10/2023 11:25 AM TRIMMER MACHINE OPERATOR Inhaled Oxygen Concentration - - Weight 60.8 kg (134 lb) 07/21/2020 11:21 AM TRIMMER MACHINE OPERATOR Height 156.8 cm (5' 1.75) 07/21/2020 11:[address] Body Mass Index 24.71 07/21/2020 11:21 AM TRIMMER MACHINE OPERATOR Plan of Treatment Health Maintenance Due Date [...] Relevant to Health Maintenance Insurance Care Teams Dental Instructor Relationship Specialty Start Date End Date Hasmukh Blount [address] [place] [address] PCP - General Family Medicine 03/03/20
--- OUTSIDE RECORDS SUMMARY | 2025-04-02 06:48 | XMS_ITS | Continuity of Care Document ---
Author Name [facility] Organization [facility] Care Team Providers Care Bicycle Assembler Name Role Phone [facility] Unavailable Unavailable Medications Combined list of outpatient [...] Site Reaction Lot Number CVX Code Drug Shield Runner Status Comments Source influenza virus vaccine, unspecified 2010 [id number] 88 CSL Behring complet ed influenza virus vaccine, unspecifi ed 07/28/11 Given Ambulat ory Pharmac y influenza virus vaccine,split 2009 [id number] CSL Behring complet ed influenza virus vaccine,s plit 07/29/10 Given Ambulat ory Pharmac y Novel influenza-H1N 1-09, injectable 2009 [id number] 127 Novartis Pharmaceutica ls complet ed Novel influenza -D1B1-70, injectabl e 12/04/09 Given Ambulat ory Pharmac y influenza virus vaccine,split 2008 [id number] 1A 15 CSL Behring complet ed influenza virus vaccine,s plit 07/30/09 Given Ambulat ory Pharmac y influenza virus vaccine,split 2008 [id number] 15 GlaxProspectStreamKli ne complet ed influenza virus vaccine,s plit 09/11/08 Given Ambulat ory Pharmac y influenza virus vaccine, live 2007 [id number] Sift Inc comple t ed influenza virus vaccine, live 08/30/07 Given Ambulat ory Pharmac y hepatitis A adult vaccine 2003 [id number] Merck & Company Inc complet ed hepatitis A adult vaccine 08/24/03 Given Ambulat ory Pharmac y tetanus-dipht h toxoids (Td) adult/adol 2003 [id number] sanofi pasteur complet ed tetanus-d iphth [...] [facility], not all [place] non-surgical procedures are included; 2) All procedures [...] section is an empty social history section. [facility] Assessment and Plan Combined list of future care activities from Department of Defense and Veterans Affairs facilities (e.g., assessment and plan notes, appointments, orders, and referrals). Additional future care activities may be listed in the Plan of Care section. Result Assessment and Plan Date Source Assessment and Plan No data available for this section 04/02/2025 Ambulatory Pharmacy Functional Status Combined list of recent functional and cognitive assessments recorded at Department of Defense and Veterans Affairs ([place]).VA Functional Gunlock Measurement (FIM) Scale: 1 = Total Assistance (Subject = 0% +), 2 = Maximal Assistance (Subject = 25% +), 3 = Moderate Assistance (Subject = 50% +), 4 = Minimal Assistance (Subject = 75% +), 5 = Supervision, 6 = Modified Gunlock (Device), 7 = Complete Gunlock (Timely, Safely). Assessment Date/Time Source Assessment Type Assessment Skill Assessment Score Assessment Details No data available for this section
--- OUTSIDE RECORDS SUMMARY | 2025-04-02 06:48 | XMS_ITS | Continuity of Care Document ---
Author Organization [facility] Address [address] [facility] [place] [address] Phone Care Team Providers Care Transportation Assistant Name Role Phone Hasmukh Blount MD Unavailable [...] Encounter PREV VISIT, EST, 65 & OVER [facility], [address], [place], [place], [address], [place] tel:[phone] [facility] physical (chief complaint) Encounter for general adult medical examination without abnormal findings 5 Jose Alejandro Santo [address], [place], [place], [address] , [place]. tel:[phone] OFFICE/OUTPA TIENT VISIT, [facility] [place], [address], [place], [place], [address], [place] tel:[phone] [facility] heel pain1 (chief complaint) Pain in right foot 5 Jose Alejandro Santo [address], [place], [place], [address] , [place]. tel:[phone] OFFICE/OUTPA TIENT VISIT, [facility] [place], [address], [place], [place], [address], [place] tel:[phone] [facility] sick (chief complaint)GERD1 (chief complaint) GERD w/o esophagitisVir al infection 5 Jose Alejandro Santo [address], [place], [place], [address] , [place]. tel:[phone] OFFICE/OUTPA TIENT VISIT, [facility] [place], [address], [place], [place], [address], [place] tel:[phone] [facility] GERD1 (chief complaint)anxet y1 (chief complaint) Generalized Anxiety DisorderGERD w/o esophagitis 4 Jose Alejandro Noe. [address], [place], [place], [address] , [place]. tel:[phone] OFFICE/OUTPA TIENT VISIT, EST [facility], [address], [place], [place], [address], [place] tel:[phone] [facility] GERD1 (chief complaint)concu ssion1 (chief complaint) GERD w/o esophagitisHea dacheGeneraliz ed Anxiety DisorderOsteop orosis 4 Jose Alejandro Noe. [address], [place], [place], [address] , [place]. tel:[phone] PREV VISIT, EST, AGE 40-64 [facility], [address], [place], [place], [address], [place] tel:[phone] [facility] physical (chief complaint) Encounter for general adult medical exam w abnormal findingsOsteop orosisHypothyr oidismPain in right ankleFibromyal otis 4 Jose Alejandro Noe. [address], [place], [place], [address] , [place]. tel:[phone] OFFICE/OUTPA TIENT VISIT, EST [facility], [address], [place], [place], [address], [place] tel:[phone] [facility] ankle pain1 (chief complaint) Pain in right anklePain in right wristFibromyal otis 4 Jose Alejandro Hasmukh. [address], [place], [place], [address] , [place]. tel:[phone] OFFICE/OUTPA TIENT VISIT, EST [facility], [address], [place], [place], [address], [place] tel:[phone] [facility] sinus1 (chief complaint)anxie ty1 (chief complaint) Acute sinusitisFibro myalgia Feb-2 4 Jose Alejandro Hasmukh. [address], [place], [place], [address] , [place]. tel:[phone] OFFICE/OUTPA TIENT VISIT, EST [facility], [address], [place], [place], [address], [place] [phone] [facility] cataract1 (chief complaint)hypot hyroidism1 (chief complaint) Cataract with neovasculariza tion, bilateralHypot hyroidism 3 Blount Hasmukh. [address], [place], [place], [address] , [place]. tel:[phone] PREV VISIT, EST, AGE 40-64 [facility], [address], [place], [place], [address], [place] tel:[phone] [facility] physical (chief complaint) Encounter for general adult medical exam w abnormal findingsOsteop orosisHypothyr oidismFibromya lgiaAcute bronchitis 3 Blount Hasmukh. [address], [place], [place], [address] , [place]. tel:[phone] OFFICE/OUTPA TIENT VISIT, [facility] [place], [address], [place], [place], [address], [place] tel:[phone] [facility] hypothyroidism1 (chief complaint)fibro myalgia1 (chief complaint) Hypothyroidism FibromyalgiaOs teoporosis 2 Blount Hasmukh. [address], [place], [place], [address] , [place]. tel:[phone] OFFICE/OUTPA TIENT VISIT, EST [facility], [address], [place], [place], [address], [place] tel:[phone] [facility] osteoporosis1 (chief complaint) Osteoporosis 2 Blount Hasmukh. [address], [place], [place], [address] , [place]. tel:[phone] OFFICE/OUTPA TIENT VISIT, [facility] [place], [address], [place], [place], [address], [place] tel:[phone] [facility] knee pain1 (chief complaint) Pain in left knee 2 Jose Alejandro Santo [address], [place], [place], [address] , [place]. [phone] OFFICE/OUTPA TIENT VISIT, EST [facility], [address], [place], [place], [address], [place] tel:[phone] [facility] shoulder pain1 (chief complaint)sinus (chief complaint)knee pain1 (chief complaint) Acute sinusitisBicip ital tendinitis, left shoulderPain in left knee Oct- 2 Jose Alejandro Noe. [address], [place], [place], [address] , [place]. tel:[phone] OFFICE/OUTPA TIENT VISIT, EST [facility], [address], [place], [place], [address], [place] tel:[phone] [facility] knee pain1 (chief complaint)left bicep pain1 (chief complaint)osteo porosis1 (chief complaint)plate let1 (chief complaint)thyro id1 (chief complaint)alope cia1 (chief complaint) Hypothyroidism Thrombocytopen iaOsteoporosis Pain in left shoulderPain in left kneeAlopecia Oct-0 2 Jose Alejandro Noe. [address], [place], [place], [address] , [place]. [phone] PREV VISIT, EST, AGE 40-64 [facility], [address], [place], [place], [address], [place] tel:[phone] [facility] physical (chief complaint) Encounter for general adult medical examination without abnormal findings 1 Jose Alejandro Santo [address], [place], [place], [address] , [place]. [phone] OFFICE/OUTPA TIENT VISIT, EST [facility], [address] [place], [address], [place] tel:[phone] [facility] anemia1 (chief complaint)hypot hyroidism1 (chief complaint)fatig ue1 (chief complaint) AnemiaFatigueT hrombocytopeni aHypothyroidis mAlopecia Apr- 0 Jose Alejandro Noe. [address], [place], [place], [address] , [place]. tel: [phone] OFFICE/OUTPA TIENT VISIT, [facility] [place], [address] [place], [address], [place] tel:[phone] [facility] hypothyroidism (chief complaint)osteo porosis1 (chief complaint)anemi a1 (chief complaint) Hypothyroidism OsteoporosisTh rombocytopenia AnemiaAlopecia 0 Jose Alejandro Noe. [address], [place], [place], [address] , [place]. tel: [phone] OFFICE/OUTPA TIENT VISIT, [facility] [place], [address] [place], [address], [place] tel:[phone] [facility] hypothyroidism1 (chief complaint)lymph 1 (chief complaint)osteo porosis1 (chief complaint) OsteoporosisTh rombocytopenia Hypothyroidism 0 Jose Alejandro Noe. [address], [place], [place], [address] , [place]. tel:[phone] OFFICE/OUTPA TIENT VISIT, [facility] [place], [address], [address], [place] tel:[phone] [facility] fibrmyalgia1 (chief complaint)osteo porosis1 (chief complaint) OsteoporosisEn counter for oth screening for malignant neoplasm of breastFibromya lgiaEncounter for screening for malignant neoplasm of colon 0 Jose Alejandro Noe. [address], [place], [place], [address] , [place]. tel:[phone] PREV VISIT, NEW, AGE 40-64 [facility], [address], [place], [place], [address], [place] tel:[phone] [facility] Physical (chief complaint) Encntr for general adult medical exam w/o abnormal findings 0 Jose Alejandro Noe. [address], [place], [place], [address] , [place]. tel:[phone] Family History Family Member Type Diagnosis Age At Onset Mother Problem of CVA (Cause Of ) 76 Brother Problem glaucoma Brother Problem aortic valve replacement Father Problem 70s for GI bleeding. DM (Cause Of ) 75 Payers Payer name Insurance type Covered green party ID Authormichele tipetr(s) [facility] CI [id number] [facility] CI [id number] Social History Type Description Quantity Date Captured [...] ordered Referral Referred To: BRYNN JENNINGS [address] [place], [place], [id number] Ordered: Referrals: Allopathic & Osteopathic Physicians : Orthopaedic Surgery. BRYNN JENNINGS. Evaluate and treat ordered Referral Ordered: Rheumatology (related to Fibromyalgia) ordered Referral Ordered: Referrals: Rheumatology. Evaluate and treat ordered Referral Ordered: Augusto Plascencia -Eye and Vision Services Providers : [employer] (related to Cataract with neovascularization, bilateral) ordered Referral Referred To: Augusto Plascencia [address] [place], [place], [id number] Ordered: Referrals: Eye and Vision Services Providers : [employer]. Augusto Plascencia. Evaluate and treat ordered Referral Ordered: Virgen Vee -Allopathic & Osteopathic Physicians : Internal Medicine : Endocrinology, Diabetes & Metabolism (related to Osteoporosis) ordered Referral Referred To: Virgen Vee [address] [facility]
[address] [place], [place] [id number] Ordered: Referrals: Allopathic & Osteopathic Physicians : Internal Medicine : Endocrinology, Diabetes & Metabolism. Virgen Vee. Evaluate and treat ordered Referral Ordered: Physical Therapy (related to Pain in left knee) ordered Referral Ordered: Physical Therapy (related to Bicipital tendinitis, left shoulder) ordered Referral Referred To: Thaddeus VACA, Can [facility] Dept Of
[address] [place], [place], [phone] Ordered: Referrals: Can Travis MD. Evaluate and [...] [place] 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 Pt is ambulating with cane now. sinus1 Pt c/o persisten t sinus congestion postnasal drainage, sore throat, sinus pain, sinus headache for 4 weeks Pt denies any fever, ear pain Pt denies any cough or sob Pt denies any sick contact .Pt is not vaccinated for anything. Pt has been taking OTC allergy and sudafed but not helping anxiety1 Pt has fibromyal otis pt sees rheumatology and she is on cymbalta and doing ok pt has mike with rheumatology next month and she needs insurance referral. hypothyroidism1 Pt has hypothyro idism Pt takes [...] worsening pain. Pt denies any other complaints hypothyroidism1 Pt has chronic h ypothyroidism. Pt denies any dysphagia or neck pain. Pt needs thyroid refilled fibromyalgia1 Pt has fibromyal otis and mild anxiety and depression, Pt takes cymbalta and doing ok. Pt sees rheumatology. Pt denies any suicidal or homicidal thought .Pt denies any crying spells osteoporosis1 Pt has osteoporo sis. Pt has [...] and she needs a referral for above knee pain1 Pt fell recently and she continues to have left knee pain .Pt denies any redness or warmth or swelling sinus Pt c/o acute ons et of [...] arthritis pt denies any discoloration around bicep. alopecia1 Pt notices thinn ing of hairline Pt denies any bald spot or redness or rash or itching scalp , Pt did not do testosterone. She states that her hair loss has slowed down left bicep pain1 Pt had COVID [facility] [...] been getting adjustment by chiropractor without improvement. thyroid1 Pt has low thyro id. Pt takes synthroid. TSh ok Pt denies any dysphagia or neck pain. Thyroid ultrasound ok platelet1 Pt has frequent and recurrent platelet [...] but hurts worse with movement and ROM. physical Pt needs annual physical. Pt has [...] for above. pt denies any other complaints anemia1 Pt had mild anem ia Pt has low platelet. Pt did see hematology. Pt had normal platelet per hematology,. her iron was low so hematology started her on oral iron, Currently pt is not anemic and her iron is ok. Pt had negative colonguard. hypothyroidism1 Pt has low thyro id. Pt takes synthroid 25 mcg and her tsh is ok now. Pt states that she felt slightly more energy initially but now her energy is low again and she also continue to lose hair .Pt denies any bald spot fatigue1 Pt continues to have fatigue. Pt denies any snoring Pt wakes up feeling tired and she feels tired all day Pt denies any sob. Pt denies any insomnia hypothyroidism Pt has low thyro id. Pt [...] fosamax ok. Pt johnie any GI issue osteoporosis Pt has osteoporo sis. her vitamin D is ok. Pt started calcium and D daily supplement already as well as weekly vitamin D. pt denies any fx lymph1 Pt had mildly hi gh lymph and her platelet clumped ,Pt denies any easy bruising or bleeding . hypothyroidism1 Pt has low thyro id ,Pt never has history of thyroid disease Pt denies any dysphagia or thyroid nodule. Pt denies any family history of thyroid disease. Pt feels fatigue and sluggish. Pt denies any weight gain or swelling. Pt does feel cold very easily for long time. fibrmyalgia1 Pt has fibromyal otis. pt sees rheumatology. Pt denies any depression or any anxiety. pt takes cymbalta from pig farmer and doing ok Pt denies any suicidal or homicidal thought. osteoporosis Patient has oste oporosis. Patient has not had any bisphosphonate for multiple years. Patient has not done lab. Patient to start calcium and vitamin D on her own last week. Patient denies any fracture. Bone density showed osteoporosis. Physical Pt needs annual physical. Pt has fibromyalgia. Pt sees pig farmer. Pt takes cymbalta from pig farmer for fibromyalgia Pt does not have any connective tissue disease Pt denies any depression or any suicidal thought. Pt denies any crying spells ,Pt is overall doing well overall and she sees pig farmer every 6 months for fibromyalgia. Pt just needs referral to her pig farmer. Pt has chronic back and arm and leg pain. she states that cymbalta does help .Pt denies any other complaints Instructions Date Instruction Additional Infor mation No Information Assessments Type Assessment Date assessment Encounter for bridget l adult medical examination without abnormal findings Mental Status Date Cognitive Assessment Orientation - Homeland ed to time, place, person, situation.
--- OUTSIDE RECORDS SUMMARY | 2025-04-02 06:48 | XMS_ITS | Clinical Summary ---
Author Organization [facility] Address [address] [place] [address] Care Team Providers Care Ice Cutter Name Role Phone John Paul Fay MD Primary Care Provider [phone] Source Comments [facility],non-owned Affiliates and Associated Physician Practices is amultiple site organization consisting of ambulatory clinics and hospital sitesin [place], [place], [place] and [place]. This disclosure is being madepursuant to the Care Everywhere program and may not contain all information available regarding this patient. Last updated 18.[facility] Allergies Active Allergy Reactions Criticality Noted Date [...] Insurance [employer] [facility] SELF PAY NO INSURANCE Member Subscriber Plan / Payer (Ef fective for All Dates) Name:Tom Herrera Member ID:Not on file Relation to Subscriber:Not on file Name:TOM HERRERA Subscriber ID:Not on file (Home) Address: [address] [place] [id number] Payer ID:Not on file Group ID:Not on file Type:Self Pay Address: [facility] Care Teams Ice Cutter Relationship Specialty Start Date End Date John Paul Fay MD [address] [place] [address] PCP - General Family Medicine 04/19/17
--- NOTE | 2025-04-02 07:11 | WPDHPUPDATE1 ---
History and Physical Update Update Date/Time: 04/02/25 07:11 History and Physical has been reviewed, including an updated exam of the patient. There are NO changes in the patient's condition. Risks, benefits, and alternatives have been discussed and questions answered. Patient agrees to proceed with procedure.
[2025-04-02] MEDS: LACTATED RINGERS 1,000 ML 30 ML IV CONT ×2 (07:30→10:06)
--- NOTE | 2025-04-02 07:54 | P.PNAN_ITS ---
Anes - Initial Pre Proc Eval Procedure: Operation Date: 04/02/25 08:30 Proposed Procedures p Trista Lateral Right Ankle Ligament Stabilization - Tom George Jr., DPM Date/Time: 04/02/25 07:54 Surgeon: Tom George Jr., DPM Pre Op Diagnosis: chronic lateral right instability Patient Data Age: 64 Gender: F Height: 1.55 m Weight: 61.5 kg Last Vital Signs Temp 98.5 F 04/02/25 06:50 Pulse 84 04/02/25 06:50 Resp 14 04/02/25 06:50 BP 126/75 04/02/25 06:50 Pulse Ox 100 04/02/25 06:50 O2 Del Method Room Air 04/02/25 06:50 Allergies Allergy/AdvReac Type Severity Reaction Status Date / Time wool Allergy Intermediate Hives Verified 04/02/25 07:36 codeine Allergy Mild Abdominal Verified 04/02/25 07:36 pain Home Medications ?Medication ?Instructions ?Recorded ?Confirmed ?Type duloxetine 30 mg capsule,delayed 30 mg PO DAILY 09/16/22 04/02/25 History release levothyroxine 25 mcg tablet 25 mcg PO DAILY 09/16/22 04/02/25 History lansoprazole 30 mg capsule,delayed 30 mg PO DAILY #90 caps 06/09/24 04/02/25 Rx release cholecalciferol (vitamin D3) 50 50 mcg PO DAILY 03/29/25 04/02/25 History mcg (2,000 unit) capsule fexofenadine 180 mg tablet 180 mg PO DAILY 03/29/25 04/02/25 History (Desi Allergy) trazodone 50 mg tablet 50 mg PO PRN PRN insomnia 03/29/25 03/29/25 History Patient hx anesthesia problems: post op nausea/vomiting and other ([place] after several GA in the past. ) Family hx anesthesia problems: none Results Review: All pre-operative results and documents have been reviewed as part of the pre- operative evaluation. [facility] Past Medical History Medical History History of endometriosis Hypothyroid Anxiety GERD (gastroesophageal reflux disease) Surgical History Surgical History H/O sinus surgery Status post complete hysterectomy Hx of right inguinal hernia repair Family History Family History Father Diabetes mellitus Mother Hypertension Other Cerebrovascular accident Family history of arthritis Family history of seizure disorder Social History Social History Smoking status: Never smoker Alcohol intake: never Substance use type: does not use Living arrangements: alone Spiritual care concerns: No Anes - Eval Final PreProcedure Day of Procedure 04/02/25 07:54 Patient weight: normal Lungs: normal air movement Airway: Mallampati scale class II Neurological: alert and oriented Last oral intake: >/= 8 hours ASA classification: II Emergent: no Anesthetic plan: proceed Anesthesia type and monitoring: general GIVS and standard monitoring Results Review: All pre-operative results and documents have been reviewed as part of the pre- operative evaluation. Hypothyroidism, GERD. Pt active, no cp or sob w walking 1-2 fos. Informed Consent: The patient's anesthetic plan and its attendant risks and benefits were discussed with the patient/family/POA. Questions were solicited and answers provided to the satisfaction of the patient/family/POA.
[2025-04-02] MEDS: ceFAZolin 2 GM in SODIUM CHLORIDE 0.9% IV 50 ML 100 ML IVPB (08:35)
[2025-04-02] MEDS: LIDOCAINE 2% LOCAL INJ 20 ML VIAL 10 ML INFILTRATE (08:35)
[2025-04-02] MEDS: BUPivacaine HCL 0.5% 10 ML AMP INFILTRATE (08:35)
[2025-04-02] MEDS: KETOROLAC 30 MG/ML VIAL (*BKC) IV PUSH (09:47)
--- NOTE | 2025-04-02 10:30 | W.PM.PROC2 ---
Procedure Note - Detailed Date of Procedure 04/02/25 Pre-op Diagnosis Chronic lateral right ankle instability Post-op Diagnosis Same Procedure Performed Brostrom Lateral Right Ankle Ligament Repair Surgeon Tom George Jr., DPM Anesthesia General and Local Indications Chronic lateral right ankle instability Description of Procedure Under mild sedation, the patient was brought in to the operating room, placed on the operating table in the supine position with bump placed under the ipsilateral hip. A pneumatic thigh tourniquet was placed about the patient's thigh. Following general anesthesia, local anesthesia was obtained about the proximal leg utilizing 20 mL of local anesthesia of a one to one mix of 0.5% Marcaine plain and 2% Lidocaine plain, administered just inferior and posterior to the neck of the fibula 10ccs and also 10cm superior to the lateral malleolus with an additional 10cc's. The foot and distal leg were then scrubbed, prepped, and draped in the usual aseptic manner. An Esmarch bandage was then used to exsanguinate the patient's foot and ankle and the pneumatic thigh tourniquet was then inflated. A 6 cm curvilinear incision was made along the anterior aspect of distal fibula. The incision was continued deep down through the subcutaneous tissues using sharp and blunt dissection. All bleeders were ligated and cauterized as necessary. Next, I identified the anterior aspect of the lateral malleolus and cut through the lateral and anterior capsule and the lateral ankle ligaments exposing the anterior and inferior margins of the distal fibula. I used a rongeur to expose cancellous bone in order to promote adhesion along the anterior and inferior aspect of the fibula. Next, I utilized the Arthrex Drill guide to drive a guide wire for the Arthrex internal brace system into the lateral aspect of the talus. The guide was positioned within the sinus tarsi canal with the paddle at the four thirty position in order to appropriately orient the distal arm of the internal brace anchor. I utilized fluoroscopy to make sure that the guide wire was adequately positioned. Moreover, I tapped and screwed in the distal anchor for the Internal Brace Implant into the lateral neck of the talus. Next, I drilled two holes and tapped in the biocomposite Suture Boris anchors along the inferior and 1.5cm superior along the anterior aspect of the fibula. In addition in between the Suture Boris drill holes I drilled a hole for the fibular component of the Internal Brace system. Next, with the foot everted and dorsiflexed I advanced the lateral ankle ligament and retinaculum to the fibula. Finally I properly tensioned the fibular component of the Arthrex Internal brace system and drove in the bone anchor following the standard technique guidelines. the foot was held slightly flexed and neutral in the frontal plane during the tensioning of the Internal brace. I utilized the remaining two sutures and provided needles from the Suture Taks to reinforce the repair by incorporating the lateral ankle capsule and ligaments and secured to the periosteum overlying the distal fibula. Excellent improvement was noted as far as the clinical anterior drawer and talar tilt. Next the subcutaneous structures were reapproximated and coapted utilizing 3-0 Vicryl. Next, the skin was reapproximated and coapted utilizing 4-0 Monocryl in running subcuticular suture fashion technique. Upon completion of the procedure, the incisions were all dressed with 1/4 inch Steri Strips, Adaptic, 4x4s, Kerlix, and Coban. The pneumatic thigh tourniquet was then deflated and a prompt hyperemic response was noted to all digits of the affected foot. A posterior splint was then applied with the foot held 90 degrees to the leg and the foot everted. The patient did very well with the procedure and the anesthesia. The patient was transferred to the recovery room with vital signs stable and vascular status intact to all toes of the affected foot. Following a period of postoperative monitoring, the patient will be discharged home on the following written and oral postoperative instructions: 1. The patient should keep the dressing clean, dry, and intact. Use a cast protector bag with showers. 2. The patient will be strictly nonweightbearing with a knee scooter. 3. Patient should ice and elevate the affected foot when at rest. 4. The patient is to contact Dr. George for all postop care and if any problems arise. 5. Prescriptions were written for Percocet 5/325 dispensed 40 to be taken 1 p.o. q.4-6 hours as needed for severe pain. Furthermore, Xarelto 10 mg was also prescribed to be taken starting 24 hours after surgery once daily for 14 days followed by one 325 mg aspirin to prevent DVT. Implants Two Arthrex 3.0mm Suturetak bone anchors One Arthrex Internal Brace 2.0 System with a 4.75mm Swivelock in talus and 3.5mm Swivelock in Fibula Estimated Blood Loss 10 Drains No Packing No Pathology None sent Complications No immediate complications Condition Stable Disposition Same day
[2025-04-02] MEDS: HYDROcodone/acetaminophen (*CRX) 5-325 MG TABLET 1 TAB PO (11:35)
== END 2025-04-02 12:20 | disposition home or self-care (01) ==
PROVIDERS: PCP Emergency Medicine; Visit Provider Podiatrist Foot & Ankle Surgery
PROC: (CPT 27698; principal; 2025-04-02 08:30)
DX: M25.371 Other instability, right ankle (principal); E03.9 Hypothyroidism, unspecified; K21.9 Gastro-esophageal reflux disease without esophagitis; F41.9 Anxiety disorder, unspecified; N80.9 Endometriosis, unspecified; M19.90 Unspecified osteoarthritis, unspecified site; Z98.890 Other specified postprocedural states
CPT/HCPCS: 27696; 99199; J0690; A9270; J1100; J1885; J2003; J2250; J2405; J2704; J3010; J7120

== ENCOUNTER 2025-07-01 10:13 | Outpatient (CLI) | payer MEDICARE, OTHER, SELFPAY ==
--- NOTE | ~2025-07-01 | MR_ITS ---
EXAM/PROCEDURE: MR ankle LT wo con HISTORY: Lateral Left ankle sprain COMPARISON: None available. TECHNIQUE: Multiplanar noncontrast enhanced left ankle MRI performed. FINDINGS: No fracture subluxation or dislocation. Focal areas of T2 weighted hyperintense bone marrow changes present in the mid calcaneal body, as well as along the posterolateral calcaneus, calcaneal tubercle, and in the subchondral areas at the calcaneal cuboid articulation along the lateral margin. No cortical erosion or destruction seen. Mild to moderate diffuse osteoarthritic degenerative changes present. Small joint effusion present. The anterior talofibular ligament appears moderately thickened with 9 x 4 mm ossification present which appears to be separate from the anterior cortex of the fibula image 17 series 3. Mild edematous changes may also be present in the fibula at this level. The posterior talofibular ligament is intact. The calcaneofibular ligament appears somewhat thickened but appears intact. Deltoid ligament appears intact. Peroneal tendons appear intact. Flexor tendons intact. Subtalar joint unremarkable. Tarsal tunnel also appears within normal limits. IMPRESSION: 1. At least partially torn anterior talofibular ligament with ossification adjacent to the fibula possibly representing an avulsion fracture. Correlate with plain films or CT of the left ankle. 2. The calcaneofibular ligament appears thickened and is probably partially torn as well. 3. Multifocal areas of edematous appearing bone marrow changes in the calcaneus which could be associated with stress reaction or injury. Some the findings are likely associated with osteoarthritis at least at the calcaneocuboid articulation. Reviewed, dictated and finalized at location A. TRIC MOTORMAN IMPRESSION: 1. At least partially torn anterior talofibular ligament with ossification [place] cent to the fibula possibly representing an avulsion fracture. Correlate with p nallely films or CT of the left ankle. 2. The calcaneofibular ligament appears thickened and is probably partially tor n as well. 3. Multifocal areas of edematous appearing bone marrow changes in the calcaneus which could be associated with stress reaction or injury. Some the findings ar e likely associated with osteoarthritis at least at the calcaneocuboid articula tion.
== END 2025-07-01 10:14 | disposition home or self-care (01) ==
LOC: MICIMG 10:14
PROVIDERS: PCP Emergency Medicine; Visit Provider Podiatrist Foot & Ankle Surgery
DX: S93.402A Sprain of unspecified ligament of left ankle, initial encounter (principal); X58.XXXA Exposure to other specified factors, initial encounter
CPT/HCPCS: 73721

== ENCOUNTER 2025-08-17 15:02 | Outpatient (CLI) | payer MEDICARE, OTHER, SELFPAY ==
--- NOTE | ~2025-08-17 | MM_ITS ---
EXAMINATION: MM screening wei BI w lola HISTORY: Screening TECHNIQUE: Craniocaudal and mediolateral oblique 3-D tomosynthesis images were obtained and synthetic 2-D images were generated. CAD analysis was submitted and interpreted. COMPARISON: 2023, 2022, and 2021 BREAST PARENCHYMAL COMPOSITION: The breast tissue is heterogeneously dense, which may obscure small masses. FINDINGS: No suspicious masses are seen. There are no suspicious calcifications. No unexplained architectural distortion is seen. There are no skin or nipple abnormalities identified. There is no adenopathy seen on the images submitted. IMPRESSION: No mammographic evidence to suggest malignancy is seen. The patient may return to screening mammography as per ACR guidelines. BI-RADS 1 - Negative. Reviewed, dictated and finalized at location C. RUNNER
--- OUTSIDE RECORDS SUMMARY | 2025-08-17 15:12 | XMS_ITS | Clinical Summary ---
Author Organization [facility] Address [address], [facility] [address] [place] [address] Phone Care Team Providers Care Drywall Sprayer Name Role Phone Hasmukh Blount Primary Care Provider [phone] Allergies Active Allergy Reactions Criticality Noted Date [...] Comments Blood Pressure 122/71 09/10/2023 11:25 AM ASBESTOS REMOVAL WORKER Pulse 103 09/10/2023 11:25 AM ASBESTOS REMOVAL WORKER Temperature 36.5 C (97.7 F) 09/10/2023 11:25 AM ASBESTOS REMOVAL WORKER Respiratory Rate 16 09/10/2023 11:25 AM ASBESTOS REMOVAL WORKER Oxygen Saturation 98% 09/10/2023 11:25 AM ASBESTOS REMOVAL WORKER Inhaled Oxygen Concentration - - Weight 60.8 kg (134 lb) 07/21/2020 11:21 AM ASBESTOS REMOVAL WORKER Height 156.8 cm (5' 1.75) 07/21/2020 11:[address] Body Mass Index 24.71 07/21/2020 11:21 AM ASBESTOS REMOVAL WORKER Plan of Treatment Health Maintenance Due Date Last Done Comments Hepatitis C Virus (HCV) Screening 1960 Mammogram 1960 TdaP Immunization 1960 Cologuard 11/15/2004 Colonoscopy 11/15/2004 Colorectal Cancer Screening 11/15/2004 Immunochemical Fecal Occult Blood 11/15/2004 Pneumococcal Immunization (50+ years) (1 of 1 - PCV) 11/15/2009 Zoster Immunization (1 of 2) 11/15/2009 DEXA Bone Density 12/28/2023 12/27/2021, , 09/11/2013, Additional history exists Influenza Immunization (#1) 04/19/202510/2018, 07/28/2011, 08/30/2007 SARS-COV-2 Immunization ( season) 2025 12/06/2020, 11/15/2020 Respiratory Syncytial Virus (RSV) Immunization (Adult) (1 - 1-dose 75+ series) 11/15/2034 Meningococcal Immunization (ACWY) Aged Out 03/13/1978 No longer eligible based on patient's age to complete this topic DTaP/Tdap/Td Immunization Discontinued 08/24/2003, 06/1979 Hepatitis B Immunization Aged Out No longer eligible based on patient's age to complete this topic Human Papillomavirus (HPV) Immunization (No Doses Required) Completed Rotavirus Immunization Aged Out No lo nger [...] Relevant to Health Maintenance Insurance Care Teams Drywall Sprayer Relationship Specialty Start Date End Date Hasmukh Blount [address] [place] [address] PCP - General Family Medicine 03/03/20
--- OUTSIDE RECORDS SUMMARY | 2025-08-17 15:12 | XMS_ITS | Clinical Summary ---
Author Organization [facility] Address [address] [place] [id number] Care Team Providers Care Charge Account Authorizer Name Role Phone Unavailable Primary Care Provider [...] 11/15/2009 Zoster Vaccines (1 of 2) 11/15/2009 Dexa Scan (General) 11/15/2024 COVID-19 Vaccine ( - 2024-2 6 season) 2025 Influenza Adult (#1) 2025 RSV Immunization or 60+ Years (1 - 1-dose 75+ series) 11/15/2034 Hepatitis A Vaccines Aged Out No long er eligible based on patient's age to complete this topic Meningococcal B Vaccine Aged Out No l onger eligible based on patient's age to complete this topic Meningococcal Vaccine Aged Out No anne marie tami eligible based on patient's age to complete this topic RSV Immunizations Under 20 Months Aged Out No longer eligible based on patient's age to complete this topic
--- OUTSIDE RECORDS SUMMARY | 2025-08-17 15:12 | XMS_ITS | Clinical Summary ---
Author Organization [facility] Address [address] [place] [address] Care Team Providers Care Gospel Singer Name Role Phone Hasmukh Blount MD Primary [...] total) by mouth nightly 30 tablet 2 03/17/[address] (CYMBALTA) 30 mg capsule Take 1 capsule (30 mg total) by mouth daily 30 capsule 3 06/17/2025 Active Active Problems Problem Noted Date Diagnosed Date Acquired hypothyroidism 07/30/2022 Assessment & Plan (08/24/2024 10:37 AM BUMPER AND PAINTER): Chronic, unknown status Continue current dose of levothyroxine Recheck labs Assessment & Plan (07/29/2023 1:22 PM BUMPER AND PAINTER): Pt currently on Levothyroxine 25 mcg oral daily Chronic stable Assessment & Plan (12/03/2022 3:07 PM CDT): Pt currently on Levothyroxine 25 mcg oral daily Chronic stable Assessment & Plan (07/30/2022 12:22 PM BUMPER AND PAINTER): Pt currently on Levothyroxine 25 mcg oral daily Recheck TFT today and further plans based on it Vitamin D deficiency 07/30/2022 Assessment & Plan (08/24/2024 10:38 AM BUMPER AND PAINTER): Check levels Assessment & Plan (07/29/2023 1:22 PM BUMPER AND PAINTER): Pt currently on maintenance dose Assessment & Plan (12/03/2022 3:07 PM CDT): Pt currently on maintenance dose Assessment & Plan (07/30/2022 12:21 PM BUMPER AND PAINTER): Pt currently on maintenance dose Will check levels and further plans based on it Primary osteoarthritis of left knee 03/27/2022 Chronic pain of left knee 03/27/2022 Anemia of unknown etiology 04/07/2020 Fibromyalgia 03/02/2018 Assessment & Plan (03/02/2018 3:16 PM CDT): Finally starting to feel better after working long hours for the [employer]. Looking forward to retiring soon and spending more time with her grandchildren. She is going to start to working out with her link trainer twice weekly tomorrow. Continue present regimen. Heel pain 03/06/2016 Overview (11/22/2016): Pain of left heel Intolerant of cold 06/03/2015 Overview (11/22/2016): Cold intolerance Osteoporosis 01/02/2014 Overview (11/23/2016): Osteoporosis Assessment & Plan (08/24/2024 10:38 AM BUMPER AND PAINTER): Chronic, unknown status Long standing h/o Osteoporosis [...] soon Assessment & Plan (07/29/2023 1:22 PM BUMPER AND PAINTER): Long standing h/o Osteoporosis Pt on oral alendronate atleast since 6-7 yrs , off since 08/2022 worsening osteoporosis S/p reclast infusion 08/29/2022 Plan: Continue current calcium and Vitamin D supplements Fall precautions Advise to include resistance/strenght balance training exercises - Due for labs after Aug 19 - due for reclast after 08/30/2023 at [facility] - due to for DEXA scan Jun-Jul [...] 2023 Assessment & Plan (07/30/2022 12:25 PM BUMPER AND PAINTER): Long standing h/o Osteoporosis Pt on oral [...] on file Legal Sex Female 11:04 AM BUMPER AND PAINTER Gender Identity Female 05/13/2020 3:10 PM CDT Sexual Orientation Straight 05/13/2020 3: 10 PM CDT Last Filed Vital Signs Vital Sign Reading Time Taken Comments Blood Pressure 104/54 12/22/2024 9:53 AM CDT Pulse 87 12/22/2024 9:53 AM CDT Temperature 36.8 C (98.2 F) 12/22/2024 9:53 AM CDT Respiratory Rate 15 07/29/2023 11:07 AM BUMPER AND PAINTER Oxygen Saturation 97% 12/22/2024 9:53 AM CDT [...] Scan 09/11/2015 09/11/2013 Depression Screening 03/21/2023 03/21/2022 Well Visit 65+ 11/15/2024 Covid-19 Vaccine ( season) 2025, 11/15/2020 Influenza Vaccine (#1) 2025 07/21/2019 Procedures Procedure Name Priority Date/Time Associated Diagnosis Comments DEXA AXIAL SKELETON BONE DENSITY 1 OR MORE SITES Routine 09/11/2013 1:54 PM BUMPER AND PAINTER from Last 3 Months or Most Recently Relevant to Health Maintenance Results * Dexa Axial Skeleton Bone Density 1 or 2 Site (09/11/2013 1:54 PM BUMPER AND PAINTER) Anatomical Region Laterality Modality Body N/A Radiographic Tamara ging 09/11/2013 1:54 PM BUMPER AND PAINTER Narrative 09/11/2013 3:11 PM BUMPER AND PAINTER Bone mineral density [facility] Clinical History: 52-year-old postmenopausal female with requisition history of osteoporosis taking calcium and vitamin D. DXA BMD was done at [facility] on a [employer] CI. Precision testing at this site has [...] vitamin D. DXA BMD was done at [facility] on a [employer] CI. Precision testing at this site [...] Most Recently Relevant to Health Maintenance Insurance [facility] MEDIC[facility] Address: [address] [address] [place] [address] [employer] Care Teams Gospel Singer Relationship Specialty Start Date End Date Hasmukh Blount MD PCP - General Family Medicine 01/18/21
== END 2025-08-17 15:03 | disposition home or self-care (01) ==
LOC: ANHFOHIMG 15:03
PROVIDERS: PCP Emergency Medicine; Visit Provider Emergency Medicine
DX: Z12.31 Encounter for screening mammogram for malignant neoplasm of breast (principal)
CPT/HCPCS: 77063; 77067